=== PATIENT | female | born 1940 | race Caucasian/White ===

== ENCOUNTER 2018-07-30 02:27 | Outpatient (CLI) | payer MEDICARE, SELFPAY | END 2018-07-30 02:47 | PROVIDERS: PCP Family Medicine; Visit Provider Family Medicine | DX: E11.9 Type 2 diabetes mellitus without complications (principal) | CPT/HCPCS: 36415; 83036 ==

== ENCOUNTER 2019-01-31 00:59 | Outpatient (CLI) | payer MEDICARE, SELFPAY ==
[2019-01-31 10:24] LABS: Hemoglobin A1C 7.1 % (4.5-6.2)
[2019-01-31 10:57] LABS: CREATININE 0.83 mg/dL (0.55-1.02); Potassium 4.4 mmol/L (3.5-5.1)
== END 2019-01-31 01:19 ==
PROVIDERS: PCP Family Medicine; Visit Provider Family Medicine
DX: E11.9 Type 2 diabetes mellitus without complications (principal); I10 Essential (primary) hypertension; F17.200 Nicotine dependence, unspecified, uncomplicated
CPT/HCPCS: 36415; 82565; 83036; 84132

== ENCOUNTER 2019-05-04 03:49 | Outpatient (CLI) | payer MEDICARE, SELFPAY ==
--- NOTE | 2019-05-04 13:52 | DI.US_ITS ---
SYMPTOMS/DIAGNOSIS: ASSESS ENDOMETRIAL STRIPE PRIOR TO SURGERY, N81.4, CYSTOCELE WITH UTEROVAGINAL PROLAPSE PELVIC ULTRASOUND: Transabdominal and transvaginal exams were performed. There are no prior comparison exams. The bladder is unremarkable. There is no evidence of hydronephrosis or free fluid. The uterus measures 5.2 x 3.0 x 4.8 cm. Peripheral vascular calcifications are seen. A nabothian cyst is present. There is a thickened irregular endometrium measuring 8 mm in thickness. There are several cystic areas within the endometrium. The ovaries are normal in size. There is a question of a left-sided myometrial fibroid. IMPRESSION: Thickened irregular endometrium.
== END 2019-05-04 04:09 ==
PROVIDERS: PCP Family Medicine; Visit Provider Obstetrics & Gynecology Gynecology
DX: N81.4 Uterovaginal prolapse, unspecified (principal)
CPT/HCPCS: 76830; 76856

== ENCOUNTER 2019-05-14 08:40 | Emergency (ER) | payer MEDICARE, SELFPAY ==
[2019-05-14 08:47] VITALS: BP 148/56; PULSE 85; RESP 18; TEMP 36.6; O2SAT 97
[2019-05-14 08:52] LABS: Bilirubin Negative (Negative); Blood Negative (Negative); Clarity Cloudy (Clear); Glucose Negative (Negative); Ketones 15 mg/dL (Negative); Leukocyte Esterase Large (Negative); Nitrite Negative (Negative); Urobilinogen 0.2 EU/dL (Up TO 0.2)
--- NOTE | 2019-05-14 08:54 | ED.GENADUL_ITS ---
Discharge Plan Disposition Patient Disposition: HOME Condition: Improving Discharge Details Chief Complaint: FlankPain Clinical Impression: Problem with vaginal pessary Primary Care Provider: Miguel Lara ED Provider: Malcom Denson Home Meds and New Rx's Prescriptions: New cephalexin 500 mg tablet 500 mg PO TID 5 Days Qty: 15 RF: 0 Continued aspirin [Adult Low Dose Aspirin] 81 mg tablet,delayed release (DR/EC) 81 mg PO DAILY RF: 0 ICaps 3,205-7-665-75 swjr-gi-xd-unit tablet extended release 1 tab PO DAILY RF: 0 metformin 500 mg tablet 500 mg PO BID RF: 0 Prevnar 13 (PF) 0.5 mL syringe 0.5 ml IM ONCE Qty: 0.5 RF: 0 Premarin 30 GM cream 30 gm VG BID Qty: 1 RF: 0 triamcinolone acetonide 15 GM ointment 1 applic Topical BID PRNQty: 30 RF: 1 amitriptyline 25 mg tablet 25 mg PO HS Qty: 90 RF: 3 chlordiazepoxide HCl 5 mg capsule 5 mg PO HS Qty: 90 RF: 1 simvastatin 20 mg tablet 20 mg PO HS Qty: 90 RF: 4 propranolol 20 mg tablet 20 mg PO BID Qty: 180 RF: 3 lisinopril-hydrochlorothiazide 20-12.5 mg tablet 1 tab PO DAILY Qty: 90 RF: 4 lisinopril 20 mg tablet 20 mg PO DAILY Qty: 90 RF: 4 amlodipine 5 mg tablet 5 mg PO DAILY Qty: 90 RF: 3 Discharge Instructions Additional Instructions: Follow-up with [facility] for surgery as planned. Take antibiotics as planned. Return if you develop a fever, persistent flank pain, or any other acute concerns. Continue all regularly scheduled medications. No heavy lifting greater than 20 pounds. Medical Decision Making 70-year-old female who has pelvic floor dysfunction for which she has colpocleisis scheduled at [facility]. Presents with low back pain over days time feeling that her pessary has shifted. She is well-appearing and afebrile. I did discuss the case with Dr. Mueller. I subsequently removed the pessary at the bedside without difficulty. Patient has questional UTI/contamination. Given her pelvic floor dysfunction and pending surgery I will opt to treat with 5 days of Keflex. She is stable and improved. Appropriate for discharge to home. HPI General Mode of arrival: ambulatory . Date/Time Provider Initiated Documentation: 05/14/19 08:42 . Limitations to Documentation: no limitations . Information obtained by: patient . History of Present Illness 78 year old F presents to the emergency department with the chief complaint of 3-4D R flank pain, described as moderate, Quality is described as dull, and is localized to the back and right. Patient reports no radiation. Patient started experiencing this day(s) and it has been intermittent. No relieving factors improve symptom(s), No exacerbating factors reported . Patient notes other (+nausea); denies fever/chills. Patient did receive the following treatments prior to arrival, none Related Data Home Medications Medication Instructions Recorded Confirmed Premarin 30 gm VG BID #1 tube 05/26/17 05/14/19 triamcinolone acetonide 1 applic TOPICAL BID PRN #30 gm 02/03/18 05/14/19 aspirin 81 mg tablet,delayed 81 mg PO DAILY 06/01/18 05/14/19 release amitriptyline 25 mg tablet 25 mg PO HS #90 tab-cap 07/20/18 05/14/19 chlordiazepoxide HCl 5 mg capsule 5 mg PO HS #90 tab 01/07/19 05/14/19 amlodipine 5 mg tablet 5 mg PO DAILY #90 tab-cap 01/17/19 05/14/19 lisinopril 20 mg tablet 20 mg PO DAILY #90 tab-cap 01/17/19 05/14/19 lisinopril 20 1 tab PO DAILY #90 tab-cap 01/17/19 05/14/19 mg-hydrochlorothiazide 12.5 mg tablet propranolol 20 mg tablet 20 mg PO BID #180 tab-cap 01/17/19 05/14/19 simvastatin 20 mg tablet 20 mg PO HS #90 tab 01/17/19 05/14/19 metformin 500 mg tablet 500 mg PO BID 01/28/19 05/14/19 pneumoc 13-dominick conj-dip cr(PF) 0.5 0.5 ml IM ONCE #0.5 ml 01/28/19 05/14/19 mL IM syringe [id number]-tjozbdn-min 1 tab PO DAILY 01/28/19 05/14/19 3,300 unit-5 mg-200mg-75 unit tablet ER cephalexin 500 mg PO TID 5 Days #15 tab 05/14/19 Previous Rx's Medication Instructions Recorded amitriptyline 25 mg tablet 25 mg PO HS #90 tab-cap 07/20/18 chlordiazepoxide HCl 5 mg capsule 5 mg PO HS #90 tab 01/07/19 amlodipine 5 mg tablet 5 mg PO DAILY #90 tab-cap 01/17/19 lisinopril 20 mg tablet 20 mg PO DAILY #90 tab-cap 01/17/19 lisinopril 20 1 tab PO DAILY #90 tab-cap 01/17/19 mg-hydrochlorothiazide 12.5 mg tablet propranolol 20 mg tablet 20 mg PO BID #180 tab-cap 01/17/19 simvastatin 20 mg tablet 20 mg PO HS #90 tab 01/17/19 pneumoc 13-dominick conj-dip cr(PF) 0.5 0.5 ml IM ONCE #0.5 ml 01/28/19 mL IM syringe cephalexin 500 mg PO TID 5 Days #15 tab 05/14/19 Allergies Allergy/AdvReac Type Severity Reaction Status Date / Time No Known Allergies Allergy Unverified 05/14/19 08:52 General Stated Complaint: FlankPain MONO: 3 Review of Systems Review of Systems 6 systems reviewed and otherwise neg PFSH Medical History Pelvic organ prolapse quantification stage 4 cystocele (Acute) Tobacco use (Acute) Surgical History Biopsy of breast (~1999) Endometrial Biopsy Tonsillectomy and adenoidectomy Family History Father Personal history of malignant neoplasm FAMILY HISTORY Heart disease Social History Smoking/Tobacco Use Status: Current every day Tobacco Type: cigarettes Alcohol Intake: never Substance use type: does not use Household members: none Sexually active: No Tete/Yarsani: methodist Seatbelt use: always Do you feel safe at home: Yes Do you feel safe in your relationship?: Yes Female Reproductive History Menstrual Menopause type: natural History History 4 Para Hx # Term Pregnancies 3 Multiple births Hx # Pregnancies Ectopic pregnancies AB induced Hx Number of Living Children AB spontaneous Exam Narrative Exam Narrative: GEN: awake, alert, oriented 3. Pleasant, well groomed, interactive. HEAD: Normocephalic, atraumatic ENT: Mucous membranes moist, oropharynx unremarkable, External ear exam unremarkable EYES: PERRL, EOMI NECK: Full ROM, no YOLETTE, no menigismus CHEST/RESP: Nontender, clear to auscultation bilateral, no wheeze/rhonchi/rales CARDIOVASCULAR: RRR, no murmur, rub lilliana. 2+ Rad pulse bilateral ABDOMEN: Soft, nontender, no mass. +Bowel sounds. Pessary in place and removed with digital exam. EXT: Full ROM, no edema, no rash Neuro: Grossly normal neurologic exam, conversant, interactive. Psych: Speech fluent, thoughts congruent, affect normal Course Vital Signs Temperature 36.6 C 05/14/19 08:47 Pulse 85 05/14/19 08:47 Respiratory Rate 18 05/14/19 08:47 Blood Pressure 148/56 H 05/14/19 08:47 Pulse Oximetry 97 05/14/19 08:47 Temperature 36.6 C 05/14/19 08:47 Temperature Source Temporal Artery Scan 05/14/19 08:47 Pulse 85 05/14/19 08:47 Respiratory Rate 18 05/14/19 08:47 Respiratory Effort Non-Labored 05/14/19 08:51 Blood Pressure 148/56 H 05/14/19 08:47 Blood Pressure Position Sitting 05/14/19 08:47 Pulse Oximetry 97 05/14/19 08:47 Oxygen Delivery Method Room Air 05/14/19 08:47 Oxygen Flow Rate 0 05/14/19 08:47 Pain Level 8 05/14/19 08:47
[2019-05-14 08:59] LABS: Bacteria Many HPF (Negative); C & S Indicated? No/Sq. Contamination; Casts Negative LPF (Negative); Crystals Negative HPF (Negative); Epithelial Cells Many HPF (Negative); Mucus Trace (Negative); RBC Negative (0-2); WBC 20-50 HPF (0-5)
== END 2019-05-14 09:28 | disposition home or self-care (01) ==
LOC: ER 09:32
PROVIDERS: Emergency Provider Emergency Medicine; PCP Family Medicine
DX: N81.4 Uterovaginal prolapse, unspecified (principal); T83.84XA Pain due to genitourinary prosthetic devices, implants and grafts, initial encounter; M54.5 Low back pain; N39.0 Urinary tract infection, site not specified; Z45.89 Encounter for adjustment and management of other implanted devices
CPT/HCPCS: 99284; 81003; 81015; 99283

== ENCOUNTER 2019-05-19 16:39 | Emergency (ER) | payer MEDICARE, SELFPAY ==
[2019-05-19 16:43] VITALS: BP 139/54; PULSE 70; RESP 16; TEMP 36.4; O2SAT 98
--- NOTE | 2019-05-19 17:00 | ED.GENADUL_ITS ---
Discharge Plan Disposition Patient Disposition: HOME Condition: Stable Discharge Details Chief Complaint: RashLesion Clinical Impression: Shingles Primary Care Provider: Miguel Lara ED Provider: Ty Cantu [employer] Meds and New Rx's Prescriptions: New acyclovir 800 mg tablet 800 mg PO Q4H 7 Days Qty: 42 RF: 0 docusate sodium [Colace] 100 mg capsule 100 mg PO BID Qty: 30 RF: 0 Continued aspirin [Adult Low Dose Aspirin] 81 mg tablet,delayed release (DR/EC) 81 mg PO DAILY RF: 0 ICaps 3,[id number] cffw-wi-so-unit tablet extended release 1 tab PO DAILY RF: 0 metformin 500 mg tablet 500 mg PO BID RF: 0 Prevnar 13 (PF) 0.5 mL syringe 0.5 ml IM ONCE Qty: 0.5 RF: 0 Premarin 30 GM cream 30 gm VG BID Qty: 1 RF: 0 triamcinolone acetonide 15 GM ointment 1 applic Topical BID PRNQty: 30 RF: 1 amitriptyline 25 mg tablet 25 mg PO HS Qty: 90 RF: 3 chlordiazepoxide HCl 5 mg capsule 5 mg PO HS Qty: 90 RF: 1 simvastatin 20 mg tablet 20 mg PO HS Qty: 90 RF: 4 propranolol 20 mg tablet 20 mg PO BID Qty: 180 RF: 3 lisinopril-hydrochlorothiazide 20-12.5 mg tablet 1 tab PO DAILY Qty: 90 RF: 4 lisinopril 20 mg tablet 20 mg PO DAILY Qty: 90 RF: 4 amlodipine 5 mg tablet 5 mg PO DAILY Qty: 90 RF: 3 Discharge Instructions Instructions: Babatunde (ED) Additional Instructions: follow up with your primary care provider in 1-2 weeks if you have severe worsening pain, persistent vomit or feel more ill return to the emergency department Medical Decision Making 78 yo female with hx of prolapsed bladder, who had a pessary removed 5 days ago in the ED and started on abx for uti and scheduled to have surgery with [facility] for her prolpase next month, comes in with rash starting yesterday. She denies dyspnea, gi symptoms, fevers. She states burning of urination is improved, still has some difficulty urinating but feels it is due to the prolapse. No frequency. She has a a maculopapular rash over the t10 dermatome on the right torso without vesicles and doesn't cross midline. No warmth, suspect shingles, no findnigs to suggest cellulitis. will start her on acyclovir and advised f/u with pcp pt also now notes constipation despite miralax for 3 days. Has no adominal pain or distention to suggest sbo or other surgical pathology so do not feel labs or imaging indicated. Will start her on stool softener Differential Diagnosis shingles, urticaria HPI General Mode of arrival: ambulatory . Date/Time Provider Initiated Documentation: 05/19/19 16:45 . Limitations to Documentation: no limitations . Information obtained by: patient . History of Present Illness 78 year old F presents to the emergency department with the chief complaint of rash, described as moderate, Quality is described as aching, and it has been constant. No relieving factors improve symptom(s), No exacerbating factors reported . Patient did receive the following treatments prior to arrival, none Related Data Home Medications Medication Instructions Recorded Confirmed Premarin 30 gm VG BID #1 tube 05/26/17 05/19/19 triamcinolone acetonide 1 applic TOPICAL BID PRN #30 gm 02/03/18 05/19/19 aspirin 81 mg tablet,delayed 81 mg PO DAILY 06/01/18 05/19/19 release amitriptyline 25 mg tablet 25 mg PO HS #90 tab-cap 07/20/18 05/19/19 chlordiazepoxide HCl 5 mg capsule 5 mg PO HS #90 tab 01/07/19 05/19/19 amlodipine 5 mg tablet 5 mg PO DAILY #90 tab-cap 01/17/19 05/19/19 lisinopril 20 mg tablet 20 mg PO DAILY #90 tab-cap 01/17/19 05/19/19 lisinopril 20 1 tab PO DAILY #90 tab-cap 01/17/19 05/19/19 mg-hydrochlorothiazide 12.5 mg tablet propranolol 20 mg tablet 20 mg PO BID #180 tab-cap 01/17/19 05/19/19 simvastatin 20 mg tablet 20 mg PO HS #90 tab 01/17/19 05/19/19 metformin 500 mg tablet 500 mg PO BID 01/28/19 05/14/19 pneumoc 13-dominick conj-dip cr(PF) 0.5 0.5 ml IM ONCE #0.5 ml 01/28/19 05/19/19 mL IM syringe [id number]-[id number]-nviafva-min 1 tab PO DAILY 01/28/19 05/19/19 3,300 unit-5 mg-200mg-75 unit tablet ER acyclovir 800 mg PO Q4H 7 Days #42 tab 05/19/19 docusate sodium [Colace] 100 mg PO BID #30 cap 05/19/19 Previous Rx's Medication Instructions Recorded amitriptyline 25 mg tablet 25 mg PO HS #90 tab-cap 07/20/18 chlordiazepoxide HCl 5 mg capsule 5 mg PO HS #90 tab 01/07/19 amlodipine 5 mg tablet 5 mg PO DAILY #90 tab-cap 01/17/19 lisinopril 20 mg tablet 20 mg PO DAILY #90 tab-cap 01/17/19 lisinopril 20 1 tab PO DAILY #90 tab-cap 01/17/19 mg-hydrochlorothiazide 12.5 mg tablet propranolol 20 mg tablet 20 mg PO BID #180 tab-cap 01/17/19 simvastatin 20 mg tablet 20 mg PO HS #90 tab 01/17/19 pneumoc 13-dominick conj-dip cr(PF) 0.5 0.5 ml IM ONCE #0.5 ml 01/28/19 mL IM syringe acyclovir 800 mg PO Q4H 7 Days #42 tab 05/19/19 docusate sodium [Colace] 100 mg PO BID #30 cap 05/19/19 Allergies Allergy/AdvReac Type Severity Reaction Status Date / Time No Known Allergies Allergy Unverified 05/19/19 16:48 General Stated Complaint: RashLesion MONO: 4 Review of Systems Review of Systems All systems reviewed & are unremarkable except as noted in HPI and below Constitutional Denies chills, Denies fever(s) and Denies weakness Cardiovascular Denies chest pain and Denies dyspnea Respiratory Denies cough and Denies dyspnea Gastrointestinal Denies abdominal pain, Denies nausea and Denies vomiting Neurologic Denies weakness PFSH Social History Smoking/Tobacco Use Status: Current every day Tobacco Type: cigarettes Alcohol Intake: never Substance use type: does not use Household members: none Sexually active: No Tete/Mu-Ism: pentecostal Seatbelt use: always Do you feel safe at home: Yes Do you feel safe in your relationship?: Yes Female Reproductive History Menstrual Menopause type: natural History History 4 Para Hx # Term Pregnancies 3 Multiple births Hx # Pregnancies Ectopic pregnancies AB induced Hx Number of Living Children AB spontaneous Exam Const General: no acute distress Orientation: alert HENMT Head: normal to inspection Ears: external ears normal General nose exam: external nose normal Mouth: moist mucous membranes Eyes General: appearance normal, both eyes and all related structures Neck Neck: normal visual inspection Resp Effort & Inspection: normal respiratory effort and able to speak in complete sentences Cardio Rate: regular rate Skin General skin exam: elasticity normal Neuro General: alert and oriented x3 Extrem General: normal to inspection Psych Mental Status: mental status grossly normal Course Vital Signs Temperature 36.4 C L 05/19/19 16:43 Pulse 70 05/19/19 16:43 Respiratory Rate 16 05/19/19 16:43 Blood Pressure 139/54 L 05/19/19 16:43 Pulse Oximetry 98 05/19/19 16:43 Temperature 36.4 C L 05/19/19 16:43 Temperature Source Skin 05/19/19 16:43 Pulse 70 05/19/19 16:43 Respiratory Rate 16 05/19/19 16:43 Respiratory Effort Non-Labored 05/19/19 16:43 Blood Pressure 139/54 L 05/19/19 16:43 Blood Pressure Position Sitting 05/19/19 16:43 Pulse Oximetry 98 05/19/19 16:43 Oxygen Delivery Method Room Air 05/19/19 16:43 Oxygen Flow Rate 0 05/19/19 16:43 Pain Level 5 05/19/19 16:43
[2019-05-19 17:02] LABS: Bilirubin Negative (Negative); Blood Negative (Negative); Clarity Clear (Clear); Glucose Negative (Negative); Ketones Negative (Negative); Leukocyte Esterase Negative (Negative); Nitrite Negative (Negative); Urobilinogen 0.2 EU/dL (Up TO 0.2)
== END 2019-05-19 17:21 | disposition home or self-care (01) ==
PROVIDERS: Emergency Provider Emergency Medicine; PCP Family Medicine
DX: B02.9 Zoster without complications (principal); K59.00 Constipation, unspecified
CPT/HCPCS: 99283; 81003; 87086

== ENCOUNTER 2020-03-16 01:49 | Outpatient (CLI) | payer MEDICARE, SELFPAY ==
[2020-03-16 14:51] LABS: Hemoglobin A1C 6.6 % (3.8-5.6)
[2020-03-16 16:06] LABS: Calculated LDL 79 mg/dL (<100); Cholesterol 158 mg/dL (<200); HDL Cholesterol 36 mg/dL (40-60); Triglyceride 215 mg/dL (<150)
== END 2020-03-16 02:09 ==
PROVIDERS: PCP Family Medicine; Visit Provider Family Medicine
DX: I10 Essential (primary) hypertension (principal); E11.9 Type 2 diabetes mellitus without complications
CPT/HCPCS: 36415; 80061; 82043; 82570; 83036

== ENCOUNTER 2020-03-22 11:07 | Outpatient (REF) | payer MEDICARE, SELFPAY ==
[2020-03-22 12:15] LABS: COMMENT (LAB VIEW ONLY) 117.55 mg/dL; Microalb ug/mg Crea 9.4 ug/mg Cr
== END 2020-03-22 11:27 ==
LOC: LBN 11:07
PROVIDERS: PCP Family Medicine; Visit Provider Family Medicine
DX: E11.9 Type 2 diabetes mellitus without complications (principal)
CPT/HCPCS: 82043; 82570

== ENCOUNTER 2021-12-04 19:08 | Outpatient (REF) | payer MEDICARE, SELFPAY ==
[2021-12-04 20:17] LABS: Hemoglobin A1C 6.9 % (<5.7)
[2021-12-04 20:25] LABS: CREATININE 0.8 mg/dL (0.55-1.02); Calculated LDL 67 mg/dL (<100); Cholesterol 151 mg/dL (<200); HDL Cholesterol 39 mg/dL (40-60); Potassium 4.7 mmol/L (3.5-5.1); Triglyceride 227 mg/dL (<150)
== END 2021-12-04 19:09 | disposition home or self-care (01) ==
LOC: LBN 19:08
PROVIDERS: PCP Family Medicine; Visit Provider Family Medicine
DX: R73.9 Hyperglycemia, unspecified (principal); I10 Essential (primary) hypertension; E78.5 Hyperlipidemia, unspecified
CPT/HCPCS: 80061; 82565; 83036; 84132

== ENCOUNTER 2021-12-23 06:53 | Day surgery (SDC) | payer MEDICARE, SELFPAY ==
[2021-12-23] MEDS: Tropicam./Phenyleph. (1/2.5%) 5 ML BTL OD ×3 (07:24→07:35)
[2021-12-23 07:25] VITALS: BP 151/64; PULSE 74; RESP 16; TEMP 36.3; O2SAT 100
--- NOTE | 2021-12-23 07:42 | W.ANESPRE ---
General Info Date of Service Date Performed: 12/23/21 Height: 4 ft 7 in Weight: 50.349 kg Body Mass Index (BMI): 25.7 Surgical Procedure: Operation Date: 12/23/21 08:25 Proposed Procedure Side Surgeon p Cataract Extraction with IOL Implant Right Aaron Narvaez MD Meds Allergies and Home Medications Allergies Allergy/AdvReac Type Severity Reaction Status Date / Time No Known Allergies Allergy Unverified 12/23/21 07:18 Home Medication Medication Instructions Recorded aspirin 81 mg tablet,delayed 81 mg PO DAILY 06/01/18 release (Adult Low Dose Aspirin) [id number]-[id number]-tznret-usezsfm-min 1 tab PO DAILY 01/28/19 3,300 unit-5 mg-200mg-75 unit tablet ER (ICaps) sennosides 8.6 mg-docusate sodium 2 tab-cap PO DAILY PRN #180 tab 03/06/20 50 mg tablet (Senna with Docusate Sodium) amitriptyline 25 mg tablet 25 mg PO HS #90 tab-cap 11/06/21 amlodipine 5 mg tablet 5 mg PO DAILY #90 tab-cap 11/06/21 lisinopril 20 mg tablet 20 mg PO DAILY #90 tab-cap 11/06/21 lisinopril 20 1 tab PO DAILY #90 tab-cap 11/06/21 mg-hydrochlorothiazide 12.5 mg tablet metformin 500 mg tablet 500 mg PO BID #180 tab 11/06/21 propranolol 20 mg tablet 20 mg PO BID #180 tab-cap 11/06/21 simvastatin 20 mg tablet 20 mg PO HS #90 tab 11/06/21 chlordiazepoxide HCl 5 mg capsule 5 mg PO HS #90 tab 11/13/21 Current Visit Medications: Current Medications Generic Name Dose Route Start Last Admin Trade Name Freq PRN Reason Stop Dose Admin Acetaminophen 1,000 mg 12/23/21 06:00 Acetaminophen 500 Mg Tab PO Q4H PRN PRN Miscellaneous Medication 0 ml 12/23/21 06:00 Prednisolone 1%, Moxifloxacin 0.5%, Nepafenac 0.1% 5ml Btl OD DIRECTED MATTHEW Miscellaneous Medication 0 ml 12/23/21 06:00 12/23/21 07:35 Tropicam./Phenyleph. 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 For 2018 [facility] urogynecology consult: Patient recommended to have a colpocleisis. Pessary maintenance (08/05/17) Long-standing use of 64 mm longstem Gelhorn. Change to 64 mm donut pessary 06/21/18. Not well tolerated. Pt will stop all pessary use and be eval for surgical Rx at [facility]. Tobacco use In the pre-contemplative stage of cessation. Surgical History Surgical History Biopsy of breast (~2000) Endometrial Biopsy neg History of bilateral salpingo-oophorectomy 07/20/19 History of total vaginal hysterectomy (TVH) Patient also had a Vaginectomy 07/20/19 Tonsillectomy and adenoidectomy Tobacco Smoking/Tobacco Use Status: Current every day Tobacco Type: cigarettes Smoking packs per day: 1 Alcohol Alcohol Intake: never Substance Use Substance use type: does not use Prental History History 4 Para Hx # Term Pregnancies 3 Multiple births Hx # Pregnancies Ectopic pregnancies AB induced Hx Number of Living Children AB spontaneous Vital Signs and Lab Results Vital Signs Most Recent Vital Signs in EMR: Most Recent Vital Signs Temp Pulse Resp BP Pulse Ox 36.3 C L 74 16 151/64 H 100 12/23/21 07:25 12/23/21 07:25 12/23/21 07:25 12/23/21 07:25 12/23/21 07:25 Point of Care Results Point of Care Results: Finger Stick Blood Glucose 154 12/23/21 07:13 Lab Results Blood Type / Crossmatch: No Data to Display Complete Blood Count: No Data to Display Complete Metabolic Panel: Potassium Level 4.7 mmol/L (3.5-5.1) 12/04/21 12:25 12/04/21 Creatinine 0.8 mg/dL (0.55-1.02) 12/04/21 12:25 12/04/21 Estimated GFR/1.73 m2 >= 60.00 (mL/min/1.73m2) 12/04/21 12:25 12/04/21 Hemoglobin A1c 6.9 % (<5.7) H 12/04/21 12:25 12/04/21 Liver Function Panel: No Data to Display Coagulation Panel: No Data to Display Cardiac Panel: No Data to Display Arterial Blood Gas: No Data to Display Venous Blood Gas: No Data to Display Pancreas Panel: No Data to Display Thyroid Panel: No Data to Display Infectious Disease: No Data to Display Blood Cultures: No Data to Display Toxicology Panel: No Data to Display Anesthesia Assessment and Plan Anesthesia History Personal History: No History of Anesthesia Complications Family History: No Family History of Anesthesia Complications Exercise Tolerance Exercise Tolerance: Metabolic Equivalents>4 Cardiac & Pulmonary Exam Cardiac Exam: Normal S1/S2 Heart Sounds Pulmonary Exam: Clear Bilateral Breath Sounds Implantable Cardiac Device Does patient have a Pacemaker or an ICD?: No Airway Exam Known Difficult Airway: No Mallampati Class: 2 Mouth Opening: Normal (> 3cm) Thyromental Distance: Greater than 3 cm Neck Range of Motion: Full ROM Neck Circumference: Normal Teeth Condition: Edentulous ASA Classification ASA Score: ASA 2 Emergency Case?: No NPO Status NPO Status: NPO Clears >2 hours, Solids >8 hours Anesthesia Plan Resuscitation Status: Full Code Anesthesia Technique: MAC Anesthesia Airway Planned: Natural Airway Monitors Used: Standard Monitors
[2021-12-23 07:44] VITALS: BMI 25.7
[2021-12-23] MEDS: Tetracaine 0.5% 4 ML BTL OD (08:14)
[2021-12-23] MEDS: Balanced Salt Soln.-PLUS 500 ML BAG (08:32)
[2021-12-23] MEDS: Duovisc Viscoelastic System EACH 1 EACH (08:33)
[2021-12-23] MEDS: Lidocaine 2% Jelly 6 ML SYR (08:34)
[2021-12-23] MEDS: Povidone-Iodine Ophth 30 ML BTL (08:35)
[2021-12-23 08:45] VITALS: BP 142/56; PULSE 73; RESP 16; TEMP 36; O2SAT 96
--- NOTE | 2021-12-23 08:46 | W.PM.DSUDISC ---
Discharge Plan Disposition Patient Disposition: HOME Condition: Good Discharge Details Attending Provider: Aaron Narvaez Primary Care Provider: Miguel Lara Home Meds and New Rx's Prescriptions: No Action aspirin [Adult Low Dose Aspirin] 81 mg tablet,delayed release (DR/EC) 81 mg PO DAILY 0RF ICaps 3,[id number] kvup-xw-rh-unit tablet extended release 1 tab PO DAILY 0RF sennosides-docusate sodium [Senna with Docusate Sodium] 8.6-50 mg tablet 2 tab-cap PO DAILY PRN Qty: 180 3RF amitriptyline 25 mg tablet 25 mg PO HS Qty: 90 3RF amlodipine 5 mg tablet 5 mg PO DAILY Qty: 90 3RF lisinopril 20 mg tablet 20 mg PO DAILY Qty: 90 4RF lisinopril-hydrochlorothiazide 20-12.5 mg tablet 1 tab PO DAILY Qty: 90 4RF metformin 500 mg tablet 500 mg PO BID Qty: 180 3RF propranolol 20 mg tablet 20 mg PO BID Qty: 180 3RF simvastatin 20 mg tablet 20 mg PO HS Qty: 90 4RF chlordiazepoxide HCl 5 mg capsule 5 mg PO HS Qty: 90 1RF Discharge Instructions Stand Alone Forms: Post-op Topical CataractRubio (DSU) Discharge Orders Discharge Orders: Discharge Order (Routine); Ordered 12/23/21 Ordered By: Aaron Narvaez DS: Diagnosis Discharge Diagnosis (1) Posterior subcapsular age-related cataract, right eye: Status: Resolved (2) Cortical cataract of right eye: Status: Resolved (3) Nuclear sclerotic cataract of right eye: Status: Resolved
--- NOTE | 2021-12-23 08:47 | ROE_ITS ---
Date of service: 12/23/21 Time of Service: 08:47 Operative Note Operative Note DATE OF PROCEDURE: 12/23/21 PRE-OP DIAGNOSIS: Nuclear/cortical/posterior subcapsular cataract, right eye POST-OP DIAGNOSIS: same PROCEDURE: Cataract extraction using phacoemulsification with intraocular lens implant, right eye SURGEON: Aaron Narvaez ANESTHESIA TYPE: Local By Surgeon and MAC Refer to Anesthesia Record ESTIMATED BLOOD LOSS: 0 PATHOLOGY: none sent COMPLICATIONS: None Patient was transported to: same day Patient's condition: stable Implants: Demetris & Demetris/LINA Tecnis [id number] Indications: Progressive visual loss due to cataract, right eye Procedure Description: CATARACT SURGERY OPERATIVE REPORT PREOPERATIVE DIAGNOSIS: 1. Nuclear/cortical/posterior subcapsular cataract, right eye POSTOPERATIVE DIAGNOSIS: Same OPERATION: 1. Cataract extraction using phacoemulsification with posterior chamber intraocular lens implant, right eye. IOL: IOL Paper Cap Machine Operator/Model: Demetris & Demetris / LINA Tecnis [id number] IOL Power: + 24.0 diopters IOL Serial Number: [id number] Optic Diameter: 6.0mm Haptic/Overall Diameter: 13.0mm PHACO INFO: Arben bencheeurion Vision System with OZil and Active Fluidics Cumulative Dispersed Energy (CDE): 14.86 seconds SURGEON: Aaron Narvaez MD, CAROLYN ANESTHESIA: Monitored Anesthesia Care (MAC), with local sub-tenon's anesthetic infiltration COMPLICATIONS: None SPECIMENS: None INDICATIONS FOR PROCEDURE: The patient is an 81-year-old lady with history of diminished visual acuity in her right eye secondary to the development of nuclear/cortical/posterior subcapsular cataract. She is significantly symptomatic that she desires cataract surgery and attempt to improve and maximize her vision. The option of cataract surgery was offered to the patient and she wished to proceed. PROCEDURE: The correct surgical eye was identified and marked as the right eye and the pupil was dilated in the preoperative area using mydriatics and cycloplegics. The dilated pupil size was 7.0 mm. She elected to proceed without oral sedation.. The patient was brought to the operating room where cardiopulmonary monitoring was instituted and surgical time-out was performed, confirming the correct operative eye and IOL power. Topical anesthesia was administered and ophthalmic povidone-iodine 5% was instilled into the conjunctival fornices. Lidocaine gel was applied to the cornea and the sandi-ocular area was prepped with Betadine 10% solution and draped in the usual sterile fashion for intraocular surgery, including an aperture drape. A Tegaderm transparent film dressing was cut in half and used to cover the lashes and lid margins. Care was taken to sequester the lashes and lid margins under the Tegaderm dressing. A lid speculum was placed between the lids of the operative eye and the Arben LuxOR Revalia operating microscope was maneuvered into position. Jamie scissors were then used to make a conjunctival buttonhole approximately 6mm posterior to the limbus in the inferonasal quadrant. Blunt dissection was carried out to expose bare sclera, and a blunt-tipped sub-tenon?s anesthesia cannula was introduced and passed posteriorly along the globe where non- preserved plain lidocaine was injected into posterior sub-Tenon?s space. A sideport knife was used to make a paracentesis port inferotemporally. Intraocular phenylephrine/lidocaine was injected into the anterior chamber. The anterior chamber was filled with viscoelastic. A 2.4mm keratome knife was used to create a half-thickness groove at the limbus and then to construct a three- plane near-clear corneal tunnel extending 2.0mm into clear cornea superiortemporally. A flap was raised on the anterior capsule and capsulorhexis forceps were used to complete a continuous curvilinear capsulorhexis of 5.5 mm. Balanced salt solution was then used to perform cortical cleaving hydrodissection and nuclear hydrodelineation until the lens could be freely rotated within the capsular bag. The lens nucleus was then disassembled and removed within the capsular bag and iris plane using phacoemulsification. Residual cortical material was removed using the I/A handpiece. The posterior capsule was carefully polished to remove as much residual lens epithelial cells as safely possible. The capsular bag was then inflated and the anterior chamber deepened with viscoelastic. The lens implant described above was inserted into the capsular bag using the LINA [place] Injector. A Kuglen hook was used to dial the IOL into position. Residual viscoelastic was then removed first from posterior to the IOL, then from the anterior chamber using the I/A handpiece. The lens implant was noted to center nicely within the capsular bag. The incisions were stromally hydrated, and the anterior chamber was reformed using BSS. Then 0.5cc of moxifloxacin 1.0mg/ml were injected into the capsular bag and anterior chamber. The incisions were checked with a Weck spear and found to be secure. Several drops of ophthalmic povidone-iodine 5% were then applied to the eye followed by two drops of Imprimis combination prednisolone/moxifloxacin/nepafenac solution. The drapes were removed and a clear plastic protective eye shield was placed over the eye. The patient was then returned to Same Day Surgery in stable condition.
--- NOTE | 2021-12-23 09:01 | W.ANESPOSTOP ---
Postoperative Evaluation Date, Time and Location Date Performed: 12/23/21 Time Performed: 08:47 Patient Location: Day Surgery Unit Vital Signs Most Recent Imported Vital Signs: Most Recent Vital Signs Temp Pulse Resp BP Pulse Ox 36.0 C L 73 16 142/56 H 96 12/23/21 08:45 12/23/21 08:45 12/23/21 08:45 12/23/21 08:45 12/23/21 08:45 Pain Score Most Recent Pain Score: Most Recent Pain Score Pain Level 0 12/23/21 08:45 Assessment Mental Status: Awake (Alert & Oriented to Patient Baseline) Airway and Respiratory Function: Patent airway with normal (patient baseline) respiratory exam Cardiovascular Function: Hemodynamically Stable Hydration Status: Adequately Hydrated Nausea & Vomiting: No Nausea or Vomiting Pain: Pt. Denies Any Pain Peripheral Nerve Block: Patient did not receive a nerve block
== END 2021-12-23 09:29 | disposition home or self-care (01) ==
PROVIDERS: PCP Family Medicine; Visit Provider Ophthalmology
PROC: (CPT 66984; principal; 2021-12-23 08:15)
DX: H25.041 Posterior subcapsular polar age-related cataract, right eye (principal); E11.9 Type 2 diabetes mellitus without complications; I10 Essential (primary) hypertension; E78.5 Hyperlipidemia, unspecified
CPT/HCPCS: 66984; V2632

== ENCOUNTER 2022-01-06 06:49 | Day surgery (SDC) | payer MEDICARE, SELFPAY ==
--- NOTE | 2022-01-06 06:47 | W.PREOPHP ---
Assessment and Plan Assessment and plan (1) Cortical cataract of left eye: Status: Acute Assessment and plan: Assessment: Visually significant cataract of the left eye. Plan: Cataract extraction with lens implantation of the left eye. (2) Nuclear sclerotic cataract of left eye: Status: Acute Assessment and plan: Assessment: Visually significant cataract of the left eye. Plan: Cataract extraction with lens implantation of the left eye. (3) Posterior subcapsular age-related cataract of left eye: Status: Acute Assessment and plan: Assessment: Visually significant cataract of the left eye. Plan: Cataract extraction with lens implantation of the left eye. History of Present Illness History of Present Illness Chief Complaint: Progressive decreased vision, left eye Narrative: The patient is an 80-year-old lady with history of progressive decreased vision in both eyes, secondary to the presence of significant bilateral nuclear/cortical/posterior subcapsular cataract. She was significantly symptomatic that she desired cataract surgery attempt to improve and maximize her vision. She underwent cataract surgery in the right eye on 12/23/2021. Postoperatively she has regained uncorrected vision of 20/70, pinhole into 20/40 in the right eye. She now presents for cataract surgery in the left eye. Review of Systems All systems reviewed & are unremarkable except as noted in HPI and below PFSH All Active Problems Posterior subcapsular age-related cataract of left eye (Acute) Nuclear sclerotic cataract of left eye (Acute) Cortical cataract of left eye (Acute) Smoker (Acute) Neurodermatitis (Acute) eczema Hyperlipidemia (Acute) Essential hypertension (Acute 08/25/13) Diabetes mellitus (Chronic 03/16/12) Arthritis (Acute) Anxiety (Acute) H/O 30 yr. benzodiazepine use Medical History Cystocele with uterine prolapse (06/30/11) Treated with LeFort colpocleisis, posterior [place] [facility] [place] Pelvic organ prolapse quantification stage 4 cystocele Long-standing Gellhorn use, 06/2018 changed with donut pessary use of insertion and removal. For [place] [facility] [place] consult: Patient recommended to have a colpocleisis. Pessary maintenance (08/05/17) Long-standing use of 64 mm longstem Gelhorn. Change to 64 mm donut pessary 06/21/18. Not well tolerated. Pt will stop all pessary use and be eval for surgical Rx at [facility] [place]. Tobacco use In the pre-contemplative stage of cessation. Surgical History Biopsy of breast (~1999) Endometrial Biopsy neg History of bilateral salpingo-oophorectomy 07/20/19 History of total vaginal hysterectomy (TVH) Patient also had a Vaginectomy 07/20/19 Tonsillectomy and adenoidectomy Family History Father Personal history of malignant neoplasm COLON FAMILY HISTORY Heart disease Social History Smoking/Tobacco Use Status: Current every day Tobacco Type: cigarettes Smoking packs per day: 1 Smoking cigarettes per day: 20.0 Smoking risk assessment performed?: Yes Alcohol Intake: never Substance use type: does not use Household members: none Sexually active: No Tete/Uatsdin: tenriism Seatbelt use: always Do you feel safe at home: Yes Do you feel safe in your relationship?: Yes Additional Social history: lives alone-will have somebody to care for her post-op Female Reproductive History Menstrual Menopause type: natural History History 4 Para Hx # Term Pregnancies 3 Multiple births Hx # Pregnancies Ectopic pregnancies AB induced Hx Number of Living Children AB spontaneous Meds Allergies and Home Medications Allergies Allergy/AdvReac Type Severity Reaction Status Date / Time No Known Allergies Allergy Verified 01/06/22 07:09 Home Medications Medication Instructions Recorded Confirmed Type aspirin 81 mg tablet,delayed 81 mg PO DAILY 06/01/18 01/06/22 History release (Adult Low Dose Aspirin) [id number]-[id number]-min 1 tab PO DAILY 01/28/19 01/06/22 History 3,300 unit-5 mg-200mg-75 unit tablet ER (ICaps) sennosides 8.6 mg-docusate sodium 2 tab-cap PO DAILY PRN #180 tab 03/06/20 01/02/22 Rx 50 mg tablet (Senna with Docusate Sodium) amitriptyline 25 mg tablet 25 mg PO HS #90 tab-cap 02/16/22 04/18/22 Rx amlodipine 5 mg tablet 5 mg PO DAILY #90 tab-cap 11/06/21 01/06/22 Rx lisinopril 20 mg tablet 20 mg PO DAILY #90 tab-cap 11/06/21 01/06/22 Rx lisinopril 20 1 tab PO DAILY #90 tab-cap 11/06/21 01/06/22 Rx mg-hydrochlorothiazide 12.5 mg tablet metformin 500 mg tablet 500 mg PO BID #180 tab 11/06/21 01/06/22 Rx propranolol 20 mg tablet 20 mg PO BID #180 tab-cap 11/06/21 01/06/22 Rx simvastatin 20 mg tablet 20 mg PO HS #90 tab 11/06/21 01/06/22 Rx chlordiazepoxide HCl 5 mg capsule 5 mg PO HS #90 tab 11/13/21 01/06/22 Rx Exam Eyes Other: Uncorrected visual acuity measures 20/70 in the right eye, pinhole in two 20/40. Corrected visual acuity in the left eye is 20/60. Intraocular pressure is 12 OD 11 OS. Extraocular Casandra is normal. Slit-lamp examination reveals a well-positioned PCIOL in the right eye with clear posterior capsule. The left eye shows mild cortical and posterior subcapsular cataract. There is a dense nuclear cataract in the left eye. Dilated funduscopic examination reveals disc cupping of 0.25 OU with normal vessels, macula, peripheral retina and vitreous. Resp Auscultation: clear to auscultation bilaterally Cardio Rate: regular rate Rhythm: regular rhythm
[2022-01-06 07:13] VITALS: BP 137/57; PULSE 70; RESP 16; TEMP 36.4; O2SAT 99
[2022-01-06] MEDS: Tropicam./Phenyleph. (1/2.5%) 5 ML BTL OS ×3 (07:20→07:30)
--- NOTE | 2022-01-06 07:33 | ANES.PREOP_ITS ---
General Info Date of Service Date Performed: 01/06/22 Height: 4 ft 7 in Weight: 51.3 kg Body Mass Index (BMI): 26.2 Surgical Procedure: Operation Date: 01/06/22 08:25 Proposed Procedure Side Surgeon p Cataract Extraction with IOL Implant Left Aaron Narvaez MD Meds Allergies and Home Medications Allergies Allergy/AdvReac Type Severity Reaction Status Date / Time No Known Allergies Allergy Verified 01/06/22 07:09 Home Medication Medication Instructions Recorded aspirin 81 mg tablet,delayed 81 mg PO DAILY 06/01/18 release (Adult Low Dose Aspirin) [id number]-[id number]-T-G-[id number]-qwyqcpl-min 1 tab PO DAILY 01/28/19 3,300 unit-5 mg-200mg-75 unit tablet ER (ICaps) sennosides 8.6 mg-docusate sodium 2 tab-cap PO DAILY PRN #180 tab 03/06/20 50 mg tablet (Senna with Docusate Sodium) amitriptyline 25 mg tablet 25 mg PO HS #90 tab-cap 11/06/21 amlodipine 5 mg tablet 5 mg PO DAILY #90 tab-cap 11/06/21 lisinopril 20 mg tablet 20 mg PO DAILY #90 tab-cap 11/06/21 lisinopril 20 1 tab PO DAILY #90 tab-cap 11/06/21 mg-hydrochlorothiazide 12.5 mg tablet metformin 500 mg tablet 500 mg PO BID #180 tab 11/06/21 propranolol 20 mg tablet 20 mg PO BID #180 tab-cap 11/06/21 simvastatin 20 mg tablet 20 mg PO HS #90 tab 11/06/21 chlordiazepoxide HCl 5 mg capsule 5 mg PO HS #90 tab 11/13/21 Current Visit Medications: Current Medications Generic Name Dose Route Start Last Admin Trade Name Freq PRN Reason Stop Dose Admin Acetaminophen 1,000 mg 01/06/22 06:00 Acetaminophen 500 Mg Tab PO Q4H PRN PRN Miscellaneous Medication 0 ml 01/06/22 06:00 Prednisolone 1%, Moxifloxacin 0.5%, Nepafenac 0.1% 5ml Btl OS DIRECTED MATTHEW Miscellaneous Medication 0 ml 01/06/22 06:00 01/06/22 07:30 Tropicam./Phenyleph. (1/2.5%) 5 Ml Btl OS 1 drp DIRECTED MATTHEW Administration Tetracaine HCl 0 ml 01/06/22 06:00 Tetracaine 0.5% 4 Ml Btl OS DIRECTED MATTHEW PFSH Active Problems Active Problems: Problem Status Onset Code Posterior subcapsular age-related cataract of left eye H25.042 Nuclear sclerotic cataract of left eye H25.12 Cortical cataract of left eye H26.9 Posterior subcapsular age-related cataract, right eye H25.041 Cortical cataract of right eye H26.9 Nuclear sclerotic cataract of right eye H25.11 Smoker F17.200 Neurodermatitis L28.0 Hyperlipidemia E78.5 Essential hypertension 08/25/13 I10 Diabetes mellitus 03/16/12 E11.9 Arthritis M19.90 Anxiety F41.9 Medical History Medical History Cystocele with uterine prolapse (06/30/11) Treated with LeFort colpocleisis, posterior repair at [facility] [place] Pelvic organ prolapse quantification stage 4 cystocele Long-standing Gellhorn use, 06/2018 changed with donut pessary use of ins ertion and removal. For [address] [facility] [place] urogynecology consult: Patient recommended to have a colpocleisis. Pessary maintenance (08/05/17) Long-standing use of 64 mm longstem Gelhorn. Change to 64 mm donut pessary 06/21/18. Not well tolerated. Pt will stop all pessary use and be eval for surgical Rx at [facility] [place]. Tobacco use In the pre-contemplative stage of cessation. Surgical History Surgical History Biopsy of breast (~2000) Endometrial Biopsy neg History of bilateral salpingo-oophorectomy 07/20/19 History of total vaginal hysterectomy (TVH) Patient also had a Vaginectomy 07/20/19 Tonsillectomy and adenoidectomy Tobacco Smoking/Tobacco Use Status: Current every day Tobacco Type: cigarettes Smoking packs per day: 1 Alcohol Alcohol Intake: never Substance Use Substance use type: does not use Prental History History 4 Para Hx # Term Pregnancies 3 Multiple births Hx # Pregnancies Ectopic pregnancies AB induced Hx Number of Living Children AB spontaneous Vital Signs and Lab Results Vital Signs Most Recent Vital Signs in EMR: Most Recent Vital Signs Temp Pulse Resp BP Pulse Ox 36.4 C L 70 16 137/57 L 99 01/06/22 07:13 01/06/22 07:13 01/06/22 07:13 01/06/22 07:13 01/06/22 07:13 Lab Results Blood Type / Crossmatch: No Data to Display Complete Blood Count: No Data to Display Complete Metabolic Panel: No Data to Display Liver Function Panel: No Data to Display Coagulation Panel: No Data to Display Cardiac Panel: No Data to Display Arterial Blood Gas: No Data to Display Venous Blood Gas: No Data to Display Pancreas Panel: No Data to Display Thyroid Panel: No Data to Display Infectious Disease: No Data to Display Blood Cultures: No Data to Display Toxicology Panel: No Data to Display Anesthesia Assessment and Plan Anesthesia History Personal History: No History of Anesthesia Complications Family History: No Family History of Anesthesia Complications Exercise Tolerance Exercise Tolerance: Metabolic Equivalents>4 Pertinent Negatives Pertinent Negatives: No Symptoms of GERD, No Major Cardiovascular Symptoms or Complaints, No Major Pulmonary Symptoms or Complaints and No History of CVA/TIA Cardiac & Pulmonary Exam Cardiac Exam: Normal S1/S2 Heart Sounds Pulmonary Exam: Clear Bilateral Breath Sounds Implantable Cardiac Device Does patient have a Pacemaker or an ICD?: No Airway Exam Known Difficult Airway: No Mallampati Class: 2 Mouth Opening: Normal (> 3cm) Thyromental Distance: Greater than 3 cm Neck Range of Motion: Full ROM Neck Circumference: Normal Teeth Condition: Edentulous ASA Classification ASA Score: ASA 2 Emergency Case?: No NPO Status NPO Status: NPO Clears >2 hours, Solids >8 hours Anesthesia Plan Resuscitation Status: Full Code Anesthesia Technique: MAC Anesthesia Airway Planned: Natural Airway Monitors Used: Standard Monitors
[2022-01-06 07:35] VITALS: BMI 26.2
[2022-01-06] MEDS: Balanced Salt Soln.-PLUS 500 ML BAG (08:24)
[2022-01-06] MEDS: Tetracaine 0.5% 4 ML BTL OS (08:24)
[2022-01-06] MEDS: Duovisc Viscoelastic System EACH 1 EACH (08:27)
[2022-01-06] MEDS: Povidone-Iodine Ophth 30 ML BTL (08:27)
[2022-01-06] MEDS: Lidocaine 2% Jelly 6 ML SYR (08:28)
[2022-01-06 08:35] VITALS: BP 136/64; PULSE 96; RESP 16; TEMP 35.9; O2SAT 96
--- NOTE | 2022-01-06 08:37 | W.PM.DSUDISC ---
Discharge Plan Disposition Patient Disposition: HOME Condition: Good Discharge Details Attending Provider: Aaron Narvaez Primary Care Provider: Miguel Lara Home Meds and New Rx's Prescriptions: No Action aspirin [Adult Low Dose Aspirin] 81 mg tablet,delayed release (DR/EC) 81 mg PO DAILY 0RF ICaps 3,[id number] uvyi-zu-hs-unit tablet extended release 1 tab PO DAILY 0RF sennosides-docusate sodium [Senna with Docusate Sodium] 8.6-50 mg tablet 2 tab-cap PO DAILY PRN Qty: 180 3RF amitriptyline 25 mg tablet 25 mg PO HS Qty: 90 3RF amlodipine 5 mg tablet 5 mg PO DAILY Qty: 90 3RF lisinopril 20 mg tablet 20 mg PO DAILY Qty: 90 4RF lisinopril-hydrochlorothiazide 20-12.5 mg tablet 1 tab PO DAILY Qty: 90 4RF metformin 500 mg tablet 500 mg PO BID Qty: 180 3RF propranolol 20 mg tablet 20 mg PO BID Qty: 180 3RF simvastatin 20 mg tablet 20 mg PO HS Qty: 90 4RF chlordiazepoxide HCl 5 mg capsule 5 mg PO HS Qty: 90 1RF Discharge Instructions Stand Alone Forms: Post-op Topical Cataract, Rubio Mullen (DSU) Discharge Orders Discharge Orders: Discharge Order (Routine); Ordered 01/06/22 Ordered By: Aaron Narvaez DS: Diagnosis Discharge Diagnosis (1) Cortical cataract of left eye: Status: Resolved (2) Nuclear sclerotic cataract of left eye: Status: Resolved (3) Posterior subcapsular age-related cataract of left eye: Status: Resolved
--- NOTE | 2022-01-06 08:38 | ROE_ITS ---
Date of service: 01/06/22 Time of Service: 08:38 Operative Note Operative Note DATE OF PROCEDURE: 01/06/22 PRE-OP DIAGNOSIS: Nuclear/cortical/posterior subcapsular cataract, left eye POST-OP DIAGNOSIS: same PROCEDURE: Cataract extraction using phacoemulsification with intraocular lens implant, left eye SURGEON: Aaron Narvaez ANESTHESIA TYPE: Local By Surgeon and MAC Refer to Anesthesia Record PATHOLOGY: none sent COMPLICATIONS: None Patient was transported to: same day Patient's condition: stable Implants: Demetris and Demetris / [employer] Tecnis [id number] Indications: Progressive decreased vision due to cataract, left eye Procedure Description: CATARACT SURGERY OPERATIVE REPORT PREOPERATIVE DIAGNOSIS: 1. Nuclear/cortical/posterior subcapsular cataract, left eye POSTOPERATIVE DIAGNOSIS: Same OPERATION: 1. Cataract extraction using phacoemulsification with posterior chamber intraocular lens implant, left eye. IOL: IOL Public Address System Mechanic/Model: Demetris & Demetris / LINA Tecnis [id number] IOL Power: + 24.0 diopters IOL Serial Number: [id number] Optic Diameter: 6.0 mm Haptic/Overall Diameter: 13.0 mm PHACO INFO: Arben Nonobaurion Vision System with OZil and Active Fluidics Cumulative Dispersed Energy (CDE): 9.12 seconds SURGEON: Aaron Narvaez MD, CAROLYN ANESTHESIA: Monitored A [facility] (MAC), with local sub-tenon's anesthetic infiltration COMPLICATIONS: None SPECIMENS: None INDICATIONS FOR PROCEDURE: The patient is an 81-year-old lady with history of diminished visual acuity in both eyes secondary to the development of bilateral cataracts. She has already undergone cataract surgery in the right eye and is doing well postoperatively. She now presents for cataract surgery in the left eye. PROCEDURE: The correct surgical eye was identified and marked as the left eye and the pupil was dilated in the preoperative area using mydriatics and cycloplegics. The dilated pupil size was 7.0 mm. She elected to proceed without oral sedation. The patient was brought to the operating room where cardiopulmonary monitoring was instituted and surgical time-out was performed, confirming the correct operative eye and IOL power. Topical anesthesia was administered and ophthalmic povidone-iodine 5% was instilled into the conjunctival fornices. Lidocaine gel was applied to the cornea and the sandi-ocular area was prepped with Betadine 10% solution and draped in the usual sterile fashion for intraocular surgery, including an aperture drape. A Tegaderm transparent film dressing was cut in half and used to cover the lashes and lid margins. Care was taken to sequester the lashes and lid margins under the Tegaderm dressing. A lid speculum was placed between the lids of the operative eye and the Arben LuxOR Revalia operating microscope was maneuvered into position. Jamie scissors were then used to make a conjunctival buttonhole approximately 6mm posterior to the limbus in the inferonasal quadrant. Blunt dissection was carried out to expose bare sclera, and a blunt-tipped sub-tenon?s anesthesia cannula was introduced and passed posteriorly along the globe where non- preserved plain lidocaine was injected into posterior sub-Tenon?s space. A sideport knife was used to make a paracentesis port superiorly/superiortemporally. Intraocular phenylephrine/lidocaine was injected int the anterior chamber.. The anterior chamber was filled with viscoelastic. A 2.4mm keratome knife was used to create a half-thickness groove at the limbus and then to construct a three-plane near-clear corneal tunnel extending 2.0mm into clear cornea at the 3:00 position. A flap was raised on the anterior capsule and capsulorhexis forceps were used to complete a continuous curvilinear capsulorhexis of 5.0 mm. Balanced salt solution was then used to perform cortical cleaving hydrodissection and nuclear hydrodelineation until the lens could be freely rotated within the capsular bag. The lens nucleus was then disassembled and removed within the capsular bag and iris plane using phacoemulsification. Residual cortical material was removed using the 45-degree angled silicone I/A tip with 0.3mm port. The posterior capsule was carefully polished to remove as much residual lens epithelial cells as safely possible. The capsular bag was then inflated and the anterior chamber deepened with viscoelastic. The lens implant described above was inserted into the capsular bag using the LINA [place] Injector. A Kuglen hook was used to dial the IOL into position. Residual viscoelastic was then removed first from posterior to the IOL, then from the anterior chamber using the I/A handpiece. The lens implant was noted to center nicely within the capsular bag. The incisions were stromally hydrated, and the anterior chamber was reformed using BSS. Then 0.5cc of moxifloxacin 1.0mg/ml were injected into the capsular bag and anterior chamber. The incisions were checked with a Weck spear and found to be secure. Several drops of ophthalmic povidone-iodine 5% were then applied to the eye followed by two drops of Imprimis combination prednisolone/moxifloxacin/nepafenac solution. The drapes were removed and a clear plastic protective eye shield was placed over the eye. The patient was then returned to Same Day Surgery in stable condition.
--- NOTE | 2022-01-06 08:56 | W.ANESPOSTOP ---
Postoperative Evaluation Date, Time and Location Date Performed: 01/06/22 Time Performed: 08:40 Patient Location: Day [facility] Unit Vital Signs Most Recent Imported Vital Signs: Most Recent Vital Signs Temp Pulse Resp BP Pulse Ox 35.9 C L 96 H 16 136/64 96 01/06/22 08:35 01/06/22 08:35 01/06/22 08:35 01/06/22 08:35 01/06/22 08:35 Pain Score Most Recent Pain Score: Most Recent Pain Score Pain Level 0 01/06/22 08:35 Assessment Mental Status: Awake (Alert & Oriented to Patient Baseline) Airway and Respiratory Function: Patent airway with normal (patient baseline) respiratory exam Cardiovascular Function: Hemodynamically Stable Hydration Status: Adequately Hydrated Nausea & Vomiting: No Nausea or Vomiting Pain: Pt. Denies Any Pain Peripheral Nerve Block: Patient did not receive a nerve block
== END 2022-01-06 09:12 | disposition home or self-care (01) ==
PROVIDERS: PCP Family Medicine; Visit Provider Ophthalmology
PROC: (CPT 66984; principal; 2022-01-06 08:15)
DX: H25.042 Posterior subcapsular polar age-related cataract, left eye (principal); E11.9 Type 2 diabetes mellitus without complications; F17.210 Nicotine dependence, cigarettes, uncomplicated; E78.5 Hyperlipidemia, unspecified; I10 Essential (primary) hypertension
CPT/HCPCS: 66984; V2632

== ENCOUNTER 2022-06-04 21:17 | Outpatient (REF) | payer MEDICARE, SELFPAY ==
[2022-06-04 21:48] LABS: Albumin ug/mg Crea 66 (<30); Albumin, Ur 2.6 mg/dL (See Note); Creatinine, Ur 39.2 mg/dL (See Note)
== END 2022-06-04 21:18 | disposition home or self-care (01) ==
LOC: LBN 21:17
PROVIDERS: PCP Family Medicine; Visit Provider Family Medicine
DX: E11.9 Type 2 diabetes mellitus without complications (principal)
CPT/HCPCS: 82043; 82570

== ENCOUNTER 2022-12-14 19:18 | Emergency (ER) | payer MEDICARE, SELFPAY ==
[2022-12-14 19:23] VITALS: BP 166/63; PULSE 99; RESP 18; TEMP 36.7; O2SAT 99
[2022-12-14 19:44] LABS: Bilirubin Negative (Negative); Blood Small (Negative); Clarity Cloudy (Clear); Glucose Negative (Negative); Ketones Negative (Negative); Leukocyte Esterase Large (Negative); Nitrite Negative (Negative); Urobilinogen 0.2 mg/dL (Up to 0.2); pH 6.5 (5-8)
[2022-12-14 19:51] LABS: C & S Indicated? Yes; WBC >50 HPF (0-5)
--- NOTE | 2022-12-14 20:01 | W.ED.GENAD ---
Discharge Plan Disposition Patient Disposition: Home Condition: Stable Discharge Details Clinical Impression: UTI (urinary tract infection) Primary Care Provider: Miguel Lara ED Provider: Jeanne Jacobson Home Meds and New Rx's Prescriptions: New cephalexin 500 mg capsule 500 mg PO BID 7 Days Qty: 14 0RF phenazopyridine [Pyridium] 200 mg tablet 200 mg PO TID PRN (Reason: pain) Qty: 6 0RF Continued aspirin [Adult Low Dose Aspirin] 81 mg tablet,delayed release (DR/EC) 81 mg PO DAILY ICaps 3,118-8-051-75 ijcf-hr-ka-unit tablet extended release 1 tab PO DAILY sennosides-docusate sodium [Senna with Docusate Sodium] 8.6-50 mg tablet 2 tab-cap PO DAILY PRN Qty: 180 3RF amitriptyline 25 mg tablet 25 mg PO HS Qty: 90 3RF simvastatin 20 mg tablet 20 mg PO HS Qty: 90 4RF lisinopril 20 mg tablet 20 mg PO DAILY Qty: 90 4RF lisinopril-hydrochlorothiazide 20-12.5 mg tablet 1 tab PO DAILY Qty: 90 4RF propranolol 20 mg tablet 20 mg PO BID Qty: 180 1RF amlodipine 5 mg tablet 5 mg PO DAILY Qty: 90 1RF chlordiazepoxide HCl 5 mg capsule 5 mg PO HS Qty: 90 1RF metformin 500 mg tablet 500 mg PO BID Qty: 180 1RF Discharge Instructions Instructions: Urinary Tract Infection in Women (ED) Additional Instructions: Your urine sample today appears consistent with a urinary tract infection. You were given 1 dose of the antibiotic Keflex and a urinary analgesic Pyridium here in the emergency department. Prescriptions for the antibiotic Keflex and the urinary analgesic Pyridium have been sent electronically to your pharmacy. Take the antibiotic as directed until finished. Take the Pyridium as needed and directed for symptoms of urinary burning and spasms. Call your primary care doctor's office tomorrow to schedule follow-up appointment earlier than your scheduled appointment on December 31 if needed. Return immediately to the emergency department if you develop any worsening or new concerning symptoms. Discharge Data Discharge Date/Time-TO BE ENTERED AT DEPARTURE: 12/14/22 20:35 Discharge Physician: Jeanne Jacobson Medical Decision Making 82-year-old female with a history of hypertension, hyperlipidemia, diabetes, prolapse of pelvic organs with history of hysterectomy and bladder lift approximately 3 years ago presents for dysuria, urinary frequency, urgency and suprapubic spasms for the past 2 weeks, much worse today. Patient appears comfortable and nontoxic. She is afebrile. Her abdomen is soft and minimally tender in the suprapubic region. She has no CVA tenderness. As patient has no systemic symptoms or severe flank or back pain, does not appear consistent with kidney stone or pyelonephritis. As patient looks so well, will treat with oral antibiotics. Previous urine culture from 2014 notes it was pansensitive to E. coli. Will cover with Keflex. She was given 1 dose of Keflex and Pyridium here and prescription sent electronically to her pharmacy. She has an appoint with her PCP on December 31. She is advised to follow-up sooner if indicated and return immediately to the emergency department if she develops any worsening or new concerning symptoms. Medical Records Medical records reviewed: Yes I reviewed the patient's medical records. Lab Data Lab results reviewed: Yes I reviewed the patient's lab results. Labs: 12/14/22 19:39 Urine - Reflex from Ua Urine Culture - Pending Laboratory Tests Range/Units 12/14/22 19:39 Urine Color (Yellow) Yellow Urine Clarity (Clear) Cloudy Urine pH (5-8) 6.5 Ur Specific [place] (1.005-1.025) 1.020 Urine Protein (Negative) mg/dL 30 H Urine Ketones (Negative) mg/dL Negative Urine Blood (Negative) Small H Urine Nitrite (Negative) Negative Urine Bilirubin (Negative) Negative Urine Urobilinogen (Up to 0.2) mg/dL 0.2 Ur Leukocyte Esterase (Negative) Large H Urine RBC Not Applicable Urine WBC (0-5) HPF >50 H Ur Epithelial Cells Not Applicable Urine Crystals Not Applicable Urine Bacteria Not Applicable Urine Mucus Not Applicable Ur Culture Indicated? Yes Urine Glucose (Negative) mg/dL Negative HPI General Mode of arrival: ambulatory. Date/Time Provider Initiated Documentation: 12/14/22 19:19. Limitations to Documentation: no limitations. Information obtained by: patient. HPI Narrative: Patient is an 82-year-old female with history of hypertension, hyperlipidemia, diabetes, prolapse of pelvic organs followed by hysterectomy and bladder lift who presents for urinary frequency, urgency, dysuria and spasm-like suprapubic pressure over the past 2 weeks, worse today. Patient states her symptoms became much more intense today. She states they have been tolerable before today. Patient denies any fever, nausea, vomiting, diarrhea or severe abdominal or back pain. Related Data Home Medications Medication Instructions Recorded Confirmed aspirin 81 mg tablet,delayed 81 mg PO DAILY 06/01/18 12/14/22 release (Adult Low Dose Aspirin) [id number] 1 tab PO DAILY 01/28/19 12/14/22 3,300 unit-5 mg-200mg-75 unit tablet ER (ICaps) sennosides 8.6 mg-docusate sodium 2 tab-cap PO DAILY PRN #180 tabs 03/06/20 12/14/22 50 mg tablet (Senna with Docusate Sodium) amitriptyline 25 mg tablet 25 mg PO HS #90 tab-caps 01/20/22 12/14/22 simvastatin 20 mg tablet 20 mg PO HS #90 tabs 05/21/22 12/14/22 lisinopril 20 mg tablet 20 mg PO DAILY #90 tab-caps 07/25/22 12/14/22 lisinopril 20 1 tab PO DAILY #90 tab-caps 07/25/22 12/14/22 mg-hydrochlorothiazide 12.5 mg tablet propranolol 20 mg tablet 20 mg PO BID #180 tab-caps 07/25/22 12/14/22 amlodipine 5 mg tablet 5 mg PO DAILY #90 tab-caps 11/18/22 12/14/22 chlordiazepoxide HCl 5 mg capsule 5 mg PO HS #90 tabs 11/18/22 12/14/22 metformin 500 mg tablet 500 mg PO BID #180 tabs 11/18/22 12/14/22 cephalexin 500 mg capsule 500 mg PO BID 7 days #14 caps 12/14/22 phenazopyridine 200 mg tablet 200 mg PO TID PRN pain 6 doses #6 12/14/22 (Pyridium) tabs Previous Rx's Medication Instructions Recorded sennosides 8.6 mg-docusate sodium 2 tab-cap PO DAILY PRN #180 tabs 03/06/20 50 mg tablet (Senna with Docusate Sodium) amitriptyline 25 mg tablet 25 mg PO HS #90 tab-caps 01/20/22 simvastatin 20 mg tablet 20 mg PO HS #90 tabs 05/21/22 lisinopril 20 mg tablet 20 mg PO DAILY #90 tab-caps 07/25/22 lisinopril 20 1 tab PO DAILY #90 tab-caps 07/25/22 mg-hydrochlorothiazide 12.5 mg tablet propranolol 20 mg tablet 20 mg PO BID #180 tab-caps 07/25/22 amlodipine 5 mg tablet 5 mg PO DAILY #90 tab-caps 11/18/22 chlordiazepoxide HCl 5 mg capsule 5 mg PO HS #90 tabs 11/18/22 metformin 500 mg tablet 500 mg PO BID #180 tabs 11/18/22 cephalexin 500 mg capsule 500 mg PO BID 7 days #14 caps 12/14/22 phenazopyridine 200 mg tablet 200 mg PO TID PRN pain 6 doses #6 12/14/22 (Pyridium) tabs Allergies Allergy/AdvReac Type Severity Reaction Status Date / Time No Known Allergies Allergy Verified 06/04/22 10:06 General Stated Complaint: Urinary MONO: 4 Review of Systems All systems reviewed & are unremarkable except as noted in HPI and below Constitutional Constitutional: Reports as per HPI, Denies chills and Denies fever(s) Eyes Eyes: Denies blurry vision ENT Ears, Nose, Mouth, and Throat: Denies dizziness, Denies sore throat and Denies throat swelling Cardiovascular Cardiovascular: Denies chest pain and Denies dyspnea Respiratory Respiratory: Denies cough and Denies dyspnea Gastrointestinal Gastrointestinal: Denies abdominal pain, Denies diarrhea and Denies vomiting Genitourinary Genitourinary: Denies hematuria, Reports dysuria, Reports urinary hesitancy and Reports urinary urgency Comments: urinary frequency Musculoskeletal Musculoskeletal: Denies back pain and Denies numbness Integumentary/Breasts Skin/Breast: Denies lesions and Denies rash Neurologic Neurologic: Denies dizziness, Denies localized weakness and Denies numbness Allergic/Immunologic Allergic/Immunologic: Denies throat swelling PFSH All Active Problems (Updated 12/14/22 @ 20:21 by Jeanne Jacobson DO) UTI (urinary tract infection) (Acute) Smoker (Acute) Neurodermatitis (Acute) eczema Hyperlipidemia (Acute) Essential hypertension (Acute 08/25/13) Diabetes mellitus (Chronic 03/16/12) Arthritis (Acute) Anxiety (Acute) H/O 30 yr. benzodiazepine use Medical History Cystocele with uterine prolapse (06/30/11) Treated with LeFort colpocleisis, posterior repair at [facility] [place] 2019 Pelvic organ prolapse quantification stage 4 cystocele Long-standing Gellhorn use, 06/2018 changed with donut pessary use of insertion and removal. For 2018 [facility] [place] urogynecology consult: Patient recommended to have a colpocleisis. Pessary maintenance (08/05/17) Long-standing use of 64 mm longstem Gelhorn. Change to 64 mm donut pessary 06/21/18. Not well tolerated. Pt will stop all pessary use and be eval for surgical Rx at [facility] [place]. Tobacco use In the pre-contemplative stage of cessation. Surgical History Biopsy of breast (~2000) Endometrial Biopsy neg History of bilateral salpingo-oophorectomy 07/20/19 History of total vaginal hysterectomy (TVH) Patient also had a Vaginectomy 07/20/19 Tonsillectomy and adenoidectomy Family History Father Personal history of malignant neoplasm COLON FAMILY HISTORY Heart disease Social History Smoking/Tobacco Use Status: Current every day Tobacco Type: cigarettes Smoking packs per day: 1 Smoking cigarettes per day: 20.0 Smoking risk assessment performed?: Yes Alcohol Intake: never Substance use type: does not use Household members: none Sexually active: No Tete/Hoahaoism: caodaism Seatbelt use: always Do you feel safe at home: Yes Do you feel safe in your relationship?: Yes Additional Social history: lives alone-will have somebody to care for her post-op Female Reproductive History Menstrual Menopause type: natural History History 4 Para Hx # Term Pregnancies 3 Multiple births Hx # Pregnancies Ectopic pregnancies AB induced Hx Number of Living Children AB spontaneous Exam Const General: cooperative, healthy appearing and no acute distress Orientation: alert, awake and oriented x3 HENMT Head: normal to inspection Face and sinus: normal facial exam Eyes General: appearance normal, both eyes and all related structures EOM: EOM intact bilaterally Neck Neck: normal visual inspection and No submandibular swelling Lymphatic: no lymphadenopathy noted Chest Chest: normal inspection of the chest and no tenderness Resp Effort & Inspection: normal respiratory effort and able to speak in complete sentences Auscultation: clear to auscultation bilaterally Cardio Rate: regular rate Rhythm: regular rhythm GI Inspection: normal to inspection Palpation: soft, not firm, not rigid and tender suprapubicly (minimal) Auscultation: hypoactive bowel sounds Back/Spine/Pelvis Back: no CVA tenderness Skin General skin exam: no rashes or lesions noted Neuro General: patient alert, patient awake and patient oriented x3 Cognition: normal cognition Speech: speech normal Motor: muscle tone normal throughout Sensory Exam: no sensory deficits noted Extrem General: normal to inspection, full ROM, capillary refill normal, no calf tenderness bilaterally and no edema Psych Appearance: grossly normal Mental Status: mental status grossly normal Speech and Movement: speech and movement normal Affect: normal affect Course Vital Signs Vital signs: Vital Signs Temperature 98.1 F 12/14/22 19:23 Pulse 99 H 12/14/22 19:23 Respiratory Rate 18 12/14/22 19:23 Blood Pressure 166/63 H 12/14/22 19:23 Pulse Oximetry 99 12/14/22 19:23 Temperature 98.1 F 12/14/22 19:23 Temperature Source Oral 12/14/22 19:23 Pulse 99 H 12/14/22 19:23 Respiratory Rate 18 12/14/22 19:23 Respiratory Effort Normal 12/14/22 19:29 Blood Pressure 166/63 H 12/14/22 19:23 Blood Pressure Position Sitting 12/14/22 19:23 Pulse Oximetry 99 12/14/22 19:23 Oxygen Delivery Method Room Air 12/14/22 19:23 Oxygen Flow Rate 0 12/14/22 19:23 Pain Level 8 12/14/22 19:23 Lab/Test Results Lab/Test Results: 12/14/22 19:39 Urine - Reflex from Ua Urine Culture - Pending Laboratory Tests Range/Units 12/14/22 19:39 Urine Color (Yellow) Yellow Urine Clarity (Clear) Cloudy Urine pH (5-8) 6.5 Ur Specific [place] (1.005-1.025) 1.020 Urine Protein (Negative) mg/dL 30 H Urine Ketones (Negative) mg/dL Negative Urine Blood (Negative) Small H Urine Nitrite (Negative) Negative Urine Bilirubin (Negative) Negative Urine Urobilinogen (Up to 0.2) mg/dL 0.2 Ur Leukocyte Esterase (Negative) Large H Urine RBC Not Applicable Urine WBC (0-5) HPF >50 H Ur Epithelial Cells Not Applicable Urine Crystals Not Applicable Urine Bacteria Not Applicable Urine Mucus Not Applicable Ur Culture Indicated? Yes Urine Glucose (Negative) mg/dL Negative
[2022-12-14] MEDS: Phenazopyridine 100 MG TAB PO (20:06)
[2022-12-14] MEDS: Cephalexin 500 MG CAP PO (20:06)
--- NOTE | 2022-12-18 08:25 | NUR.NOTE ---
Nursing Note: Accessed pt chart to determine antibiotic on discharge.
--- NOTE | 2022-12-18 08:49 | W.EDPROG ---
Date of service: 12/14/22 Time of Service: 08:55 Medical Decision Making Received results from patient for her urine culture. Contacted patient over the phone and she stated she was stable but still having symptoms which the Pyridium is helping with but not fully resolving. Urine culture results show Pseudomonas infection. Patient currently on Keflex which she was encouraged to stop and will start patient on Cipro. Did discuss with patient potential side effects of sharon quinolones and to stop medication for any side effects and contact her primary care provider if they occur. Prescription was sent to patient's pharmacy. Patient had no further questions after our discussion. Medical Records Medical records reviewed: Yes I reviewed the patient's medical records. Discharge Plan Disposition Patient Disposition: Home Condition: Stable Discharge Details Clinical Impression: UTI (urinary tract infection) Primary Care Provider: Miguel Lara ED Provider: Jeanne Jacobson Home Meds and New Rx's Prescriptions: New phenazopyridine [Pyridium] 200 mg tablet 200 mg PO TID PRN (Reason: pain) Qty: 6 0RF ciprofloxacin HCl [Cipro] 500 mg tablet 500 mg PO BID Qty: 10 0RF Continued aspirin [Adult Low Dose Aspirin] 81 mg tablet,delayed release (DR/EC) 81 mg PO DAILY ICaps [id number] lnim-za-ox-unit tablet extended release 1 tab PO DAILY sennosides-docusate sodium [Senna with Docusate Sodium] 8.6-50 mg tablet 2 tab-cap PO DAILY PRN Qty: 180 3RF amitriptyline 25 mg tablet 25 mg PO HS Qty: 90 3RF simvastatin 20 mg tablet 20 mg PO HS Qty: 90 4RF lisinopril 20 mg tablet 20 mg PO DAILY Qty: 90 4RF lisinopril-hydrochlorothiazide 20-12.5 mg tablet 1 tab PO DAILY Qty: 90 4RF propranolol 20 mg tablet 20 mg PO BID Qty: 180 1RF amlodipine 5 mg tablet 5 mg PO DAILY Qty: 90 1RF chlordiazepoxide HCl 5 mg capsule 5 mg PO HS Qty: 90 1RF metformin 500 mg tablet 500 mg PO BID Qty: 180 1RF Discharge Instructions Instructions: Urinary Tract Infection in Women (ED) Additional Instructions: Your urine sample today appears consistent with a urinary tract infection. You were given 1 dose of the antibiotic Keflex and a urinary analgesic Pyridium here in the emergency department. Prescriptions for the antibiotic Keflex and the urinary analgesic Pyridium have been sent electronically to your pharmacy. Take the antibiotic as directed until finished. Take the Pyridium as needed and directed for symptoms of urinary burning and spasms. Call your primary care doctor's office tomorrow to schedule follow-up appointment earlier than your scheduled appointment on December 31 if needed. Return immediately to the emergency department if you develop any worsening or new concerning symptoms. Discharge Data Discharge Date/Time-TO BE ENTERED AT DEPARTURE: 12/14/22 20:35 Discharge Physician: Jeanne Jacobson
== END 2022-12-14 20:35 | disposition home or self-care (01) ==
PROVIDERS: Student in an Organized Health Care Education/Training Program; Emergency Provider Physician Assistant; PCP Family Medicine
DX: N39.0 Urinary tract infection, site not specified (principal); B96.5 Pseudomonas (aeruginosa) (mallei) (pseudomallei) as the cause of diseases classified elsewhere
CPT/HCPCS: 87077; 99283; 81003; 81015; 87086; 87186

== ENCOUNTER 2023-01-21 11:10 | Outpatient (CLI) | payer MEDICARE, SELFPAY ==
[2023-01-21 13:00] LABS: CREATININE 0.9 mg/dL (0.55-1.02); Estimated GFR 63.83 (mL/min/1.73m2); Potassium 4.6 mmol/L (3.5-5.1)
[2023-01-21 14:17] LABS: Vitamin B12 284 pg/mL (193-986)
== END 2023-01-21 11:11 | disposition home or self-care (01) ==
PROVIDERS: PCP Family Medicine; Referring Provider Family Medicine; Visit Provider Family Medicine
DX: I10 Essential (primary) hypertension (principal); D64.9 Anemia, unspecified; E53.8 Deficiency of other specified B group vitamins
CPT/HCPCS: 36415; 80186; 83090; 82565; 82607; 84132

== ENCOUNTER 2023-03-13 02:57 | Outpatient (CLI) | payer MEDICARE, SELFPAY ==
[2023-03-16 11:05] LABS: Homocysteine 14.4 umol/L (5.0-13.9)
== END 2023-03-13 02:58 | disposition home or self-care (01) ==
LOC: LBO 02:57
PROVIDERS: PCP Family Medicine; Visit Provider Family Medicine
DX: E53.8 Deficiency of other specified B group vitamins (principal); I10 Essential (primary) hypertension; D64.9 Anemia, unspecified; E11.9 Type 2 diabetes mellitus without complications; F41.8 Other specified anxiety disorders; Z79.899 Other long term (current) drug therapy
CPT/HCPCS: 36415; 80186; 83090

== ENCOUNTER 2023-12-24 12:41 | Observation (INO) | payer MEDICARE, SELFPAY ==
[2023-12-24] VITALS (11 sets, daily range): BP systolic 107–155; BP diastolic 51–85; PULSE 75–91; RESP 14–20; TEMP 35.7–37; O2SAT 95–98
--- NOTE | 2023-12-24 13:26 | ED.GENADUL_ITS ---
Discharge Plan Disposition Patient Disposition: Admit to [facility] Condition: Stable Discharge Details Chief Complaint: Orthopedic Clinical Impression: Closed right ankle fracture Primary Care Provider: Miguel Lara ED Provider: Jai Contreras Home Meds and New Rx's Prescriptions: No Action aspirin [Adult Low Dose Aspirin] 81 mg tablet,delayed release (DR/EC) 81 mg PO DAILY ICaps [id number] [id number]-[id number]-unit tablet extended release 1 tab PO DAILY sennosides-docusate sodium [Senna with Docusate Sodium] 8.6-50 mg tablet 2 tab-cap PO DAILY PRN Qty: 180 3RF cyanocobalamin (vitamin B-12) 1,000 mcg capsule 1,000 mcg PO DAILY folic acid 800 mcg tablet 0.8 mg PO DAILY amitriptyline 25 mg tablet 25 mg PO HS Qty: 90 3RF amlodipine 5 mg tablet 5 mg PO DAILY Qty: 90 1RF lisinopril 20 mg tablet 20 mg PO DAILY Qty: 90 4RF lisinopril-hydrochlorothiazide 20-12.5 mg tablet 1 tab PO DAILY Qty: 90 4RF metformin 500 mg tablet 500 mg PO BID Qty: 180 1RF propranolol 20 mg tablet 20 mg PO BID Qty: 180 3RF simvastatin 20 mg tablet 20 mg PO HS Qty: 90 4RF chlordiazepoxide HCl 5 mg capsule 5 mg PO HS Qty: 90 1RF HPI General Mode of arrival: ambulatory . Date/Time Provider Initiated Documentation: 12/24/23 13:02 . Limitations to Documentation: no limitations . Information obtained by: patient . HPI Narrative: 83-year-old female with multiple medical problems including history of hypertension, diabetes, smoker, here with right ankle pain and deformity after slip and fall on ice/snow just prior to arrival. Patient notes she was walking on her driveway using ski poles and lost her balance and somehow spun around landed on the ground. She injured her ankle during the fall. She did not hit her head. She denies head or neck pain. No chest pain or abdominal pain. No pelvic pain. No upper leg pain. Related Data Home Medications Medication Instructions Recorded Confirmed aspirin 81 mg tablet,delayed 81 mg PO DAILY 06/01/18 07/23/23 release (Adult Low Dose Aspirin) [id number]-mvzlimw-min 1 tab PO DAILY 01/28/19 07/23/23 3,300 unit-5 mg-200mg-75 unit tablet ER (ICaps) sennosides 8.6 mg-docusate sodium 2 tab-cap (2 x 8.6-50 mg) PO DAILY 03/06/20 07/23/23 50 mg tablet (Senna with Docusate PRN #180 tabs Sodium) cyanocobalamin (vitamin B-12) 1,000 mcg PO DAILY 07/23/23 07/23/23 1,000 mcg capsule folic acid 800 mcg tablet 0.8 mg PO DAILY 07/23/23 07/23/23 amitriptyline 25 mg tablet 25 mg PO HS #90 tab-caps 10/24/23 amlodipine 5 mg tablet 5 mg PO DAILY #90 tab-caps 10/24/23 lisinopril 20 mg tablet 20 mg PO DAILY #90 tab-caps 10/24/23 lisinopril 20 1 tab PO DAILY #90 tab-caps 10/24/23 mg-hydrochlorothiazide 12.5 mg tablet metformin 500 mg tablet 500 mg PO BID #180 tabs 10/24/23 propranolol 20 mg tablet 20 mg PO BID #180 tab-caps 10/24/23 simvastatin 20 mg tablet 20 mg PO HS #90 tabs 10/24/23 chlordiazepoxide HCl 5 mg capsule 5 mg PO HS #90 tabs 11/17/23 Previous Rx's Medication Instructions Recorded sennosides 8.6 mg-docusate sodium 2 tab-cap (2 x 8.6-50 mg) PO DAILY 03/06/20 50 mg tablet (Senna with Docusate PRN #180 tabs Sodium) amitriptyline 25 mg tablet 25 mg PO HS #90 tab-caps 10/24/23 amlodipine 5 mg tablet 5 mg PO DAILY #90 tab-caps 10/24/23 lisinopril 20 mg tablet 20 mg PO DAILY #90 tab-caps 10/24/23 lisinopril 20 1 tab PO DAILY #90 tab-caps 10/24/23 mg-hydrochlorothiazide 12.5 mg tablet metformin 500 mg tablet 500 mg PO BID #180 tabs 10/24/23 propranolol 20 mg tablet 20 mg PO BID #180 tab-caps 10/24/23 simvastatin 20 mg tablet 20 mg PO HS #90 tabs 10/24/23 chlordiazepoxide HCl 5 mg capsule 5 mg PO HS #90 tabs 11/17/23 Allergies Allergy/AdvReac Type Severity Reaction Status Date / Time No Known Allergies Allergy Verified 01/21/23 10:58 General Stated Complaint: Orthopedic MONO: 4 Exam Const General: cooperative and no acute distress HENCA Head: normocephalic and atraumatic Mouth: moist mucous membranes Resp Auscultation: clear to auscultation bilaterally, no rales, no rhonchi and no wheezes Cardio Rate: regular rate and not tachycardic Rhythm: regular rhythm GI Palpation: soft, not firm, no guarding, no masses, not rigid and nontender Back/Spine/Pelvis Cervical Spine: cervical ROM normal and No cervical spinal tenderness Thoracic/Lumbar Spine: No thoracic spinal tenderness and No lumbar spinal tenderness Pelvis: no pain with anterior-posterior compression and no pain with lateral compression Neuro General: patient alert, patient awake and tone normal Psych Appearance: grossly normal Mental Status: mental status grossly normal Course Vital Signs Vital signs: Vital Signs Temperature 37.0 C 12/24/23 12:43 Pulse 82 12/24/23 12:43 Respiratory Rate 16 12/24/23 12:43 Pulse Oximetry 98 12/24/23 12:43 Temperature 37.0 C 12/24/23 12:43 Pulse 82 12/24/23 12:43 Respiratory Rate 16 12/24/23 12:43 Respiratory Effort Normal 12/24/23 12:46 Blood Pressure 155/85 H 12/24/23 12:47 Pulse Oximetry 98 12/24/23 12:43 Pain Level 0 12/24/23 13:00 Medical Decision Making 1328?-83-year-old female presents after slip and fall on ice/no with injury to her right ankle. Patient has prior history of remote fracture of the right ankle. Patient has significant tenderness anteriorly with deformity. Patient neurovascular intact distally. X-ray of the ankle shows posterior malleolus fracture with dislocation of the ankle. Prior healed distal tib-fib with some angulation noted. 1533 --patient evaluated by Dr. Ivy. Dr. Ivy performed hematoma block and reduced fracture dislocation and placed in splint. He will admit the patient for surgery tomorrow. Lab Data Lab results reviewed: Yes I reviewed the patient's lab results. Labs: Laboratory Tests Range/Units 12/24/23 14:35 WBC (4.4-10.8) 10^3/uL 12.31 H RBC (3.93-5.22) 10^6/uL 4.51 Hgb (11.2-15.7) g/dL 13.3 Hct (36.0-46.0) % 40.2 MCV (80-95) fL 89 MCH (27.0-33.0) pg 29.5 MCHC (32.0-36.0) % 33.1 RDW (11.7-14.6) % 13.2 Plt Count (130-400) 10^3/uL 364 MPV (8.0-11.0) fL 9.5 Immature Gran % 0.5 Neutrophils % 81.3 Lymphocytes % 12.4 Monocytes % 4.2 Eosinophils % 1.1 Basophils % 0.5 Nucleated RBC % (0.0-0.3) % 0.0 Absolute Neutrophils (1.2-6.7) 10^3/uL 10.01 H Absolute Lymphocytes (1.2-3.4) 10^3/uL 1.53 Absolute Monocytes (0.1-0.8) 10^3/uL 0.52 Absolute Eosinophils (0.0-0.7) 10^3/uL 0.14 Absolute Basophils (0.0-0.2) 10^3/uL 0.06 Sodium (136-145) mmol/L 133 L Potassium (3.5-5.1) mmol/L 4.2 Chloride (98-107) mmol/L 96 L Carbon Dioxide (21.0-32.0) mmol/L 25.8 Anion Gap (3-11) mmol/L 11.2 H BUN (7-18) mg/dL 20 H Creatinine (0.55-1.02) mg/dL 0.9 Est GFR (CKD-EPI 2020) (mL/min/1.73m2) 63.43 Glucose (74-106) mg/dL 190 H Calcium (8.5-10.1) mg/dL 9.2 Total Bilirubin (0.2-1.0) mg/dL 0.3 AST (15-37) U/L 17 ALT (14-59) U/L 21 Alkaline Phosphatase (46-116) U/L 136 H Total Protein (6.4-8.2) g/dL 8.2 Albumin (3.4-5.0) g/dL 3.8 Quality:SDOH Health Related Social Needs: No Data to Display PFSH All Active Problems (Updated 12/24/23 @ 15:36 by Jai Contreras MD) Closed right ankle fracture (Acute) Low vitamin B12 level (Acute) Peripheral neuropathy (Acute) Smoker (Acute) Neurodermatitis (Acute) eczema Hyperlipidemia (Acute) Essential hypertension (Acute 08/25/13) Diabetes mellitus (Chronic 03/16/12) Arthritis (Acute) Anxiety (Acute) H/O 30 yr. benzodiazepine use Medical History Pessary maintenance (08/05/17) Long-standing use of 64 mm longstem Gelhorn. Change to 64 mm donut pessary 06/21/18. Not well tolerated. Pt will stop all pessary use and be eval for surgical Rx at [facility]. Cystocele with uterine prolapse (06/30/11) Treated with LeFort colpocleisis, posterior repair at [facility] 2019 Tobacco use In the pre-contemplative stage of cessation. Pelvic organ prolapse quantification stage 4 cystocele Long-standing Gellhorn use, 06/2018 changed with donut pessary use of insertion and removal. For 2019 [facility] urogynecology consult: Patient recommended to have a colpocleisis. Surgical History History of bilateral salpingo-oophorectomy 07/20/19 History of total vaginal hysterectomy (TVH) Patient also had a Vaginectomy 07/20/19 Tonsillectomy and adenoidectomy Endometrial Biopsy neg Biopsy of breast (~2000) Family History Father Personal history of malignant neoplasm COLON FAMILY HISTORY Heart disease Social History Smoking/Tobacco Use Status: Current every day Tobacco Type: cigarettes Smoking packs per day: 1 Smoking cigarettes per day: 20.0 Smoking risk assessment performed?: Yes Alcohol Intake: never Substance use type: does not use Household members: none Sexually active: No Tete/Zoroastrian: cheondoism Seatbelt use: always Do you feel safe at home: Yes Do you feel safe in your relationship?: Yes Additional Social history: lives alone-will have somebody to care for her post- op Female Reproductive History Menstrual Menopause type: natural History History 4 Para Hx # Term Pregnancies 3 Multiple births Hx # Pregnancies Ectopic pregnancies AB induced Hx Number of Living Children AB spontaneous
--- NOTE | 2023-12-24 13:32 | DI.RAD_ITS ---
Exam(s) XR ANKLE RT COMPLETE EXAM: XR ANKLE RT COMPLETE CLINICAL HISTORY: fall, pain, deformity. TECHNIQUE: 2D digital imaging was performed. Three views. COMPARISON: No exams were available for comparison FINDINGS: BONES: Trimalleolar fracture. Posterior dislocation of the talus with respect to the majority of the distal tibia. The posterior malleolar fragment is aligned with the talus. Old distal tibial and fi bular fractures. No bony destructive lesion is seen. Small heel spurs. Bones appear osteopenic. JOINTS: No significant joint space narrowing. SOFT TISSUE: Swelling around the malleoli. IMPRESSION: Trimalleolar fracture with posterior displacement of the talus. DATA REPOSITORY: RADIATION DOSE DELIVERED:
[2023-12-24 14:44] LABS: Abs Immature Grans 0.06 10^3/uL (0.0-0.06); Absolute Basophil Count 0.06 10^3/uL (0.0-0.2); Absolute Lymphocyte Count 1.53 10^3/uL (1.2-3.4); Absolute Monocyte Count 0.52 10^3/uL (0.1-0.8); Absolute Neutrophil Count 10.01 10^3/uL (1.2-6.7); Basophils % 0.5; Eosinophils % 1.1; HCT 40.2 % (36.0-46.0); HGB 13.3 g/dL (11.2-15.7); Immature Grans % 0.5; Lymphocytes % 12.4; MCH 29.5 pg (27.0-33.0); MCHC 33.1 % (32.0-36.0); MCV 89 fL (80-95); MPV 9.5 fL (8.0-11.0); Monocytes % 4.2; Neutrophils % 81.3; Platelet Count 364 10^3/uL (130-400); RBC 4.51 10^6/uL (3.93-5.22); RDW 13.2 % (11.7-14.6); RDW-SD 43.1 fL; WBC 12.31 10^3/uL (4.4-10.8)
[2023-12-24 14:49] LABS: Absolute Eosinophil Count 0.14 10^3/uL (0.0-0.7)
[2023-12-24 14:58] LABS: ALT 21 U/L (14-59); AST 17 U/L (15-37); Albumin 3.8 g/dL (3.4-5.0); Alkaline Phosphatase 136 U/L (46-116); Anion Gap 11.2 mmol/L (3-11); BUN 20 mg/dL (7-18); Bilirubin, Total 0.3 mg/dL (0.2-1.0); CO2 25.8 mmol/L (21.0-32.0); CREATININE 0.9 mg/dL (0.55-1.02); Calcium 9.2 mg/dL (8.5-10.1); Chloride 96 mmol/L (98-107); Estimated GFR 63.43 (mL/min/1.73m2); Glucose 190 mg/dL (74-106); Potassium 4.2 mmol/L (3.5-5.1); Sodium 133 mmol/L (136-145); Total Protein 8.2 g/dL (6.4-8.2)
--- NOTE | 2023-12-24 15:30 | DI.RAD_ITS ---
Exam(s) XR ANKLE RT COMPLETE EXAM: XR ANKLE RT COMPLETE CLINICAL HISTORY: post reduction. TECHNIQUE: 2D digital imaging was performed. COMPARISON: CR XR ANKLE RT COMPLETE from 12/24/2023 FINDINGS: 3 in cast views Post reduction images reveal improved alignment of the fracture fragments and tibiotalar joint. IMPRESSION: Improved alignment on these post reduction images. DATA REPOSITORY: RADIATION DOSE DELIVERED:
[2023-12-24] MEDS: fentaNYL 100 MCG/2 ML VIAL (15:39)
--- NOTE | 2023-12-24 15:43 | W.ORTHOCONSU ---
Date of service: 12/24/23 Time of Service: 15:30 Assessment and Plan Assessment and plan (1) Fracture dislocation of right ankle: Status: Acute Assessment and plan: 83-year-old female with right ankle bimalleolar fracture dislocation Patient reports slip and fall earlier today with notable ankle pain and deformity. Helped and eventually brought to the hospital by her neighbors. She lives alone in a mobile home. She is quite comfortable, but does note her ankle looks rather deformed. Denies any baseline diabetic neuropathy, also denies any numbness or tingling at this time. She typically walks without any assist device. She reports a remote history unable to recall details of right ankle/leg fractures and states she always walked, but somewhat abnormally since that healed. She reports she takes a number of medicines, but is not entirely sure. She has hypertension and diabetes. Her last hemoglobin A1c was 7.1 in July 2023, previously 6.8. She does smoke regularly about a pack per day. Right ankle has obvious deformity, there is early edema and early probable fracture blisters anteriorly and laterally. There is tenderness as expected around the fracture site. Intact cap refill, dorsalis pedis pulse, and motor wiggling all toes without difficulty. Denies any numbness or tingling throughout the foot and ankle. Patient is remarkably comfortable at rest. Diminutive size foot and ankle. Right ankle x-rays confirm bimalleolar fracture dislocation with low distal fibula fracture and large posterior malleolus fracture with straight posterior fracture. No medial malleolus fracture appreciated. Chronic deformities healed mid distal fibula and tibia, which appears to be an old distal tib-fib fracture treated nonoperatively. Reviewed with patient, she strongly opposes any sedation for reduction. She elects for hematoma block, tolerated very well, ankle readily reduced, but markedly unstable posteriorly. Maintained in splint as best possible. Patient strongly wants to go home and follow-up with surgery at some other time. I reviewed this is risky given the high likelihood of redislocation as well as the fact the patient lives alone and she admits she will be ambulatory on this foot and ankle through the splint which raises the chance of displacement dislocation swelling blisters and problems with future treatment. In the end, she is agreeable to admission. She has stable chronic medical problems, I am happy to admit the patient with a medical consultation as needed. She will be n.p.o. after midnight, strict elevation right ankle, and plan for surgery: Right ankle ORIF tomorrow. Patient eager for discharge home after surgery, but we reviewed again that she will need to be evaluated for safe ambulation. She would prefer to avoid any home health or physical therapy services, but I again reminded her that these might be helpful and increase her safety especially if she wants to expedite her discharge back home where she lives alone. Definitive surgery would have been considered tonight, but the operating room is currently busy with general surgery procedure without an anticipated completion time. Postreduction her exam was reassuring, she is even more comfortable, neurovascular intact, no signs or symptoms of compartment syndrome or other concerning problem. PFSH All Active Problems (Updated 12/24/23 @ 16:06 by Dat Ivy MD) Fracture dislocation of right ankle (Acute 12/24/23) Closed right ankle fracture (Acute) Low vitamin B12 level (Acute) Peripheral neuropathy (Acute) Smoker (Acute) Neurodermatitis (Acute) eczema Hyperlipidemia (Acute) Essential hypertension (Acute 08/25/13) Diabetes mellitus (Chronic 03/16/12) Arthritis (Acute) Anxiety (Acute) H/O 30 yr. benzodiazepine use Medical History Pessary maintenance (08/05/17) Long-standing use of 64 mm longstem Gelhorn. Change to 64 mm donut pessary 06/21/18. Not well tolerated. Pt will stop all pessary use and be eval for surgical Rx at [facility]. Cystocele with uterine prolapse (06/30/11) Treated with LeFort colpocleisis, posterior repair at [facility] 2019 Tobacco use In the pre-contemplative stage of cessation. Pelvic organ prolapse quantification stage 4 cystocele Long-standing Gellhorn use, 06/2018 changed with donut pessary use of insertion and removal. For 2019 [facility] urogynecology consult: Patient recommended to have a colpocleisis. Surgical History History of bilateral salpingo-oophorectomy 07/20/19 History of total vaginal hysterectomy (TVH) Patient also had a Vaginectomy 07/20/19 Tonsillectomy and adenoidectomy Endometrial Biopsy neg Biopsy of breast (~1999) Family History Father Personal history of malignant neoplasm COLON FAMILY HISTORY Heart disease Social History Smoking/Tobacco Use Status: Current every day Tobacco Type: cigarettes Smoking packs per day: 1 Smoking cigarettes per day: 20.0 Smoking risk assessment performed?: Yes Alcohol Intake: never Substance use type: does not use Household members: none Sexually active: No Tete/Gnosticism: hindu Seatbelt use: always Do you feel safe at home: Yes Do you feel safe in your relationship?: Yes Additional Social history: lives alone-will have somebody to care for her post-op Female Reproductive History Menstrual Menopause type: natural History History 4 Para Hx # Term Pregnancies 3 Multiple births Hx # Pregnancies Ectopic pregnancies AB induced Hx Number of Living Children AB spontaneous Results Last Vital Signs Temp 98.6 F 12/24/23 12:43 Pulse 82 12/24/23 15:08 Resp 14 12/24/23 15:08 BP 155/85 H 12/24/23 12:47 Pulse Ox 97 12/24/23 15:08 Labs 12/24/23 14:35 12/24/23 14:35 Labs: Laboratory Results - last 24 hr 12/24/23 14:35 WBC 12.31 H RBC 4.51 Hgb 13.3 Hct 40.2 MCV 89 MCH 29.5 MCHC 33.1 RDW 13.2 Plt Count 364 MPV 9.5 Immature Gran % 0.5 Neutrophils % 81.3 Lymphocytes % 12.4 Monocytes % 4.2 Eosinophils % 1.1 Basophils % 0.5 Nucleated RBC % 0.0 Absolute Neutrophils 10.01 H Absolute Lymphocytes 1.53 Absolute Monocytes 0.52 Absolute Eosinophils 0.14 Absolute Basophils 0.06 Sodium 133 L Potassium 4.2 Chloride 96 L Carbon Dioxide 25.8 Anion Gap 11.2 H BUN 20 H Creatinine 0.9 Est GFR (CKD-EPI 2020) 63.43 Glucose 190 H Calcium 9.2 Total Bilirubin 0.3 AST 17 ALT 21 Alkaline Phosphatase 136 H Total Protein 8.2 Albumin 3.8 Procedures Orthopedic Joint Reduction Right ankle: Time out performed: Yes Side: right Joint reduction location: ankle Analgesia: hematoma block Local anesthetic used: lidocaine 1% Amount of anesthetic used (ml): 10 Technique used: direct manipulation Post-reduction neuro exam: intact Post-reduction vascular exam: intact Post-reduction x-ray obtained: Yes Post-reduction x-ray results: reduced (Majority reduced, some expected posterior displacement still present) Splint applied: Yes Patient tolerated procedure: well Additional comments: CPT #81811
--- NOTE | 2023-12-24 15:51 | NUR.NOTE ---
Nursing Note: Pt expressed some anxiousness in anticipation of ankle reduction, however she did well during the procedure. This program writer remained at bedside to assist with support, such as holding pt's hand per pt request. Pt denies pain through entire procedure, and tolerates the reduction with 50mcg of fentanyl via IV. She is assisted back to a comfortable position and states she needs nothing more at this time. She expresses agreement with plan to stay overnight and undergo surgery tomorrow. Awaiting follow up xray and admission.
--- NOTE | 2023-12-24 16:54 | W.PC.ACHO ---
Registration Status: REG ER Primary Language: Preferred Language: Slovenian ED Information & Data Chief Complaint Orthopedic 12/24/23 13:29 Triage Note pt was grabbing mail, 12/24/23 12:43 slipped on ice and landed on r foot, r ankle pain. pt crawled through snow to get to phone. no pain at this time, only discomfort. Medical / Surgical History (Updated 12/24/23 @ 16:06 by Dat Ivy MD) Pessary maintenance (08/05/17) Cystocele with uterine prolapse (06/30/11) Tobacco use Pelvic organ prolapse quantification stage 4 cystocele (Updated 01/06/22 @ 08:38 by Aaron Narvaez MD) History of bilateral salpingo-oophorectomy History of total vaginal hysterectomy (TVH) Tonsillectomy and adenoidectomy Endometrial Biopsy Biopsy of breast (~1999) Most Recent Vital Signs Temperature 37.0 C 12/24/23 12:43 Pulse 82 12/24/23 15:08 Respiratory Rate 14 12/24/23 15:08 Respiratory Effort Normal 12/24/23 12:46 Blood Pressure 155/85 H 12/24/23 12:47 Pulse Oximetry 97 12/24/23 15:08 Respiratory End-tidal CO2 39 12/24/23 15:08 Oxygen Delivery Method Room Air 12/24/23 15:08 Oxygen Flow Rate 0 12/24/23 15:08 Pain Level 2 12/24/23 15:08 Allergies No Known Allergies Allergy (Verified 12/24/23 15:40) IV IV Catheter Type [Right Saline Lock Antecubital] IV Catheter Gauge [Right 20 Antecubital] Diagnostics 12/24/23 Range/Units 14:35 WBC 12.31 H (4.4-10.8) 10^3/uL RBC 4.51 (3.93-5.22) 10^6/uL Hgb 13.3 (11.2-15.7) g/dL Hct 40.2 (36.0-46.0) % MCV 89 (80-95) fL MCH 29.5 (27.0-33.0) pg MCHC 33.1 (32.0-36.0) % RDW 13.2 (11.7-14.6) % Plt Count 364 (130-400) 10^3/uL MPV 9.5 (8.0-11.0) fL Immature Gran % 0.5 Neutrophils % 81.3 Lymphocytes % 12.4 Monocytes % 4.2 Eosinophils % 1.1 Basophils % 0.5 Nucleated RBC % 0.0 (0.0-0.3) % Absolute Neutrophils 10.01 H (1.2-6.7) 10^3/uL Absolute Lymphocytes 1.53 (1.2-3.4) 10^3/uL Absolute Monocytes 0.52 (0.1-0.8) 10^3/uL Absolute Eosinophils 0.14 (0.0-0.7) 10^3/uL Absolute Basophils 0.06 (0.0-0.2) 10^3/uL Sodium 133 L (136-145) mmol/L Potassium 4.2 (3.5-5.1) mmol/L Chloride 96 L (98-107) mmol/L Carbon Dioxide 25.8 (21.0-32.0) mmol/L Anion Gap 11.2 H (3-11) mmol/L BUN 20 H (7-18) mg/dL Creatinine 0.9 (0.55-1.02) mg/dL Est GFR (CKD-EPI 2020) 63.43 (mL/min/1.73m2) Glucose 190 H (74-106) mg/dL Calcium 9.2 (8.5-10.1) mg/dL Total Bilirubin 0.3 (0.2-1.0) mg/dL AST 17 (15-37) U/L ALT 21 (14-59) U/L Alkaline Phosphatase 136 H (46-116) U/L Total Protein 8.2 (6.4-8.2) g/dL Albumin 3.8 (3.4-5.0) g/dL Intake and Output - 24 Hour Total 12/24/23 12:36 thru 12/24/23 12:43 Weight 52 kg Falls Risk Assessment History of Falls Previous History 12/24/23 12:46 Fall Total Score 15 12/24/23 12:46 Level of Risk Standard/Low Risk 12/24/23 12:46 Problems (Updated 12/24/23 @ 16:06 by Dat Ivy MD) Fracture dislocation of right ankle (Acute 12/24/23) Notes 12/24/23 15:51 Nursing Notes by Nancy Cali Nursing Note: Pt expressed some anxiousness in anticipation of ankle reduction, however she did well during the procedure. This real estate underwriter remained at bedside to assist with support, such as holding pt's hand per pt request. Pt denies pain through entire procedure, and tolerates the reduction with 50mcg of fentanyl via IV. She is assisted back to a comfortable position and states she needs nothing more at this time. She expresses agreement with plan to stay overnight and undergo surgery tomorrow. Awaiting follow up xray and admission. Initialized on 12/24/23 15:51 - END OF NOTE v v v v v v v v v Sending and/or Receiving Nurses: Please use comment section below to note any information pertinent to the patient hand-off not included above. Information / Comments: Vital signs are stable. Pain under good control. NPO after midnight for surgery tomorrow Report received from:Soila Cali RN
[2023-12-24] MEDS: Naproxen 250 MG TAB PO (18:17)
[2023-12-24] MEDS: Normal Saline 1,000 ML 75 ML IV (19:05)
[2023-12-24] MEDS: Acetaminophen 500 MG TAB 1000 MG PO (19:18)
[2023-12-24] MEDS: Simvastatin 20 MG TAB PO (20:38)
[2023-12-24] MEDS: metFORMIN 500 MG TAB PO (20:38)
[2023-12-24] MEDS: Amitriptyline 25 MG TAB PO (21:01)
[2023-12-24] MEDS: Propranolol 20 MG TAB PO (21:01)
[2023-12-24] MEDS: MORPHine 4 MG/ML SYR IVP (22:31)
[2023-12-24] MEDS: Normal Saline Flush 10 ML SYR IVP (23:14)
[2023-12-25] VITALS (15 sets, daily range): BP systolic 95–138; BP diastolic 33–78; PULSE 70–94; RESP 13–22; TEMP 35.7–36.8; O2SAT 94–98; BMI 25.0
--- NOTE | 2023-12-25 06:28 | NUR.NOTE ---
portable CXR done as ordered.
--- NOTE | 2023-12-25 06:30 | DI.RAD_ITS ---
Exam(s) XR PORTABLE CHEST AP EXAM: XR PORTABLE CHEST AP CLINICAL HISTORY: PREOP. TECHNIQUE: 2D digital imaging was performed. COMPARISON: No exams were available for comparison FINDINGS: Single AP portable view. Heart size is upper normal. The mediastinum is not widened. Lungs are clear. No infiltrates nor obvious pleural effusions. IMPRESSION: No acute pulmonary findings on this single AP portable view of the chest. DATA REPOSITORY: RADIATION DOSE DELIVERED:
[2023-12-25 06:35] LABS: Anion Gap 11.8 mmol/L (3-11); BUN 17 mg/dL (7-18); CO2 24.2 mmol/L (21.0-32.0); CREATININE 0.8 mg/dL (0.55-1.02); Calcium 8.5 mg/dL (8.5-10.1); Chloride 97 mmol/L (98-107); Estimated GFR 73.06 (mL/min/1.73m2); Glucose 158 mg/dL (74-106); Potassium 4.3 mmol/L (3.5-5.1); Sodium 133 mmol/L (136-145)
[2023-12-25 06:54] LABS: Hemoglobin A1C 7.3 % (<5.7)
--- NOTE | 2023-12-25 07:00 | RT.EKG_ITS ---
APPROVED REPORT Exam: Resting ECG Reason for Exam: Preop Patient Location: I HR:73 bpm ECG Measurements Heart Rate 73 AXIS SD 206 P 49 QRSd 93 QRS 21 QT 404 T 48 QTc 446 Conclusion Sinus rhythm...normal P axis, V-rate 50- 99 Normal Electrocardiogram
--- NOTE | 2023-12-25 07:12 | ANES.PREOP_ITS ---
General Info Date of Service Date Performed: 12/25/23 Height: 4 ft 9 in Weight: 52.4 kg Body Mass Index (BMI): 25.0 Surgical Procedure: Operation Date: 12/25/23 10:55 Proposed Procedure Side Surgeon p Ankle ORIF Right Dat Ivy MD Meds Allergies and Home Medications Allergies Allergy/AdvReac Type Severity Reaction Status Date / Time No Known Allergies Allergy Verified 12/24/23 15:40 Home Medication Medication Instructions Recorded aspirin 81 mg tablet,delayed 81 mg PO DAILY 06/01/18 release (Adult Low Dose Aspirin) [id number]-min 1 tab PO DAILY 01/28/19 3,300 unit-5 mg-200mg-75 unit tablet ER (ICaps) cyanocobalamin (vitamin B-12) 1,000 mcg PO DAILY 07/23/23 1,000 mcg capsule folic acid 800 mcg tablet 0.8 mg PO DAILY 07/23/23 amitriptyline 25 mg tablet 25 mg PO HS #90 tab-caps 10/24/23 amlodipine 5 mg tablet 5 mg PO DAILY #90 tab-caps 10/24/23 lisinopril 20 mg tablet 20 mg PO DAILY #90 tab-caps 10/24/23 lisinopril 20 1 tab PO DAILY #90 tab-caps 10/24/23 mg-hydrochlorothiazide 12.5 mg tablet metformin 500 mg tablet 500 mg PO BID #180 tabs 10/24/23 propranolol 20 mg tablet 20 mg PO BID #180 tab-caps 10/24/23 simvastatin 20 mg tablet 20 mg PO HS #90 tabs 10/24/23 chlordiazepoxide HCl 5 mg capsule 5 mg PO HS #90 tabs 11/17/23 Current Visit Medications: Current Medications Generic Name Dose Route Start Last Admin Trade Name Freq PRN Reason Stop Dose Admin Acetaminophen 1,000 mg 12/24/23 17:11 12/24/23 19:18 Acetaminophen 500 Mg Tab PO 1,000 mg Q6H PRN PRN Administration Amitriptyline HCl 25 mg 12/24/23 20:00 12/24/23 21:01 Amitriptyline 25 Mg Tab PO 25 mg HS MATTHEW Administration Chlordiazepoxide HCl 5 mg 12/24/23 20:00 12/24/23 21:10 Chlordiazepoxide 5 Mg Cap PO Not Given HS MATTHEW Diphenhydramine HCl 25 mg 12/24/23 17:11 Diphenhydramine 25 Mg Cap PO Q6H PRN PRN insomnia, itchiness, or rash Docusate Sodium 100 mg 12/24/23 17:11 Docusate Sodium 100 Mg Cap PO BID PRN PRN Ondansetron HCl 4 mg/ Sodium 52 mls @ 200 mls/hr 12/24/23 17:11 Chloride IVPB Q6H PRN PRN Sodium Chloride 1,000 mls @ 75 mls/hr 12/25/23 00:01 12/24/23 21:11 Saline 1000ml Bag IV 75 mls/hr INFUSION MATTHEW Infusion Metformin HCl 500 mg 12/24/23 20:00 12/24/23 20:38 Metformin 500 Mg Tab PO 500 mg BID MATTHEW Administration Morphine Sulfate 2 - 4 mg 12/24/23 17:12 12/24/23 22:31 Morphine 4 Mg/Ml Syr IVP 2 mg Q2H PRN PRN Administration Naproxen 250 mg 12/24/23 17:11 12/24/23 18:17 Naproxen 250 Mg Tab PO 250 mg BID PRN PRN Administration for moderate to severe pain Propranolol HCl 20 mg 12/24/23 20:00 12/24/23 21:01 Propranolol 20 Mg Tab PO 20 mg BID MATTHEW Administration Simvastatin 20 mg 12/24/23 20:00 12/24/23 20:38 Simvastatin 20 Mg Tab PO 20 mg HS MATTHEW Administration Sodium Chloride 0 ml 12/24/23 19:56 12/24/23 23:14 Normal Saline Flush 10 Ml Syr IVP 20 ml PRN PRN Administration Tramadol HCl 50 mg 12/24/23 17:11 Tramadol 50 Mg Tab PO Q6H PRN PRN PFSH Active Problems Active Problems: Problem Status Onset Code Fracture dislocation of right ankle 12/24/23 S82.891A Closed right ankle fracture S82.891A Low vitamin B12 level E53.8 Peripheral neuropathy G62.9 Posterior subcapsular age-related cataract of left eye H25.042 Nuclear sclerotic cataract of left eye H25.12 Cortical cataract of left eye H26.9 Posterior subcapsular age-related cataract, right eye H25.041 Cortical cataract of right eye H26.9 Nuclear sclerotic cataract of right eye H25.11 Smoker F17.200 Neurodermatitis 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 Change to 64 mm donut pessary 06/21/18. Not well tolerated. Pt will stop all pessary use and [place] [facility] [place] Cystocele with uterine prolapse (06/30/11) Treated with LeFort colpocleisis, posterior [place] [facility] [place] Tobacco use In the pre-contemplative stage of cessation. Pelvic organ prolapse quantification stage 4 cystocele Long-standing Gellhorn use, 06/2018 changed with donut pessary use of insertion and removal. [place] [facility] consult: Patient recommended to have a colpocleisis. Surgical History Surgical History History of bilateral salpingo-oophorectomy 07/20/19 History of total vaginal hysterectomy (TVH) Patient also had a Vaginectomy 07/20/19 Tonsillectomy and adenoidectomy Endometrial Biopsy neg Biopsy of breast (~1999) Tobacco Smoking/Tobacco Use Status: Current every day Tobacco Type: cigarettes Smoking packs per day: 1 Alcohol Alcohol Intake: never Substance Use Substance use type: does not use Prental History History 2 4 Para Hx # Term Pregnancies 3 Multiple births Hx # Pregnancies Ectopic pregnancies AB induced Hx Number of Living Children AB spontaneous Vital Signs and Lab Results Vital Signs Most Recent Vital Signs in EMR: Most Recent Vital Signs Temp Pulse Resp BP Pulse Ox 35.7 C L 80 20 127/58 L 95 12/24/23 23:42 12/24/23 17:20 12/24/23 17:20 12/24/23 23:42 12/24/23 17:19 Lab Results 12/24/23 14:35 12/25/23 05:38 Blood Type / Crossmatch: 2 No Data to Display Complete Blood Count: 2 White Blood Count 12.31 10^3/uL (4.4-10.8) H 12/24/23 14:35 Red Blood Count 4.51 10^6/uL (3.93-5.22) 12/24/23 14:35 Hemoglobin 13.3 g/dL (11.2-15.7) 12/24/23 14:35 Hematocrit 40.2 % (36.0-46.0) 12/24/23 14:35 Platelet Count 364 10^3/uL (130-400) 12/24/23 14:35 Complete Metabolic Panel: 2 Sodium 133 mmol/L (136-145) L 12/25/23 05:38 Potassium 4.3 mmol/L (3.5-5.1) 12/25/23 05:38 Chloride 97 mmol/L (98-107) L 12/25/23 05:38 Carbon Dioxide 24.2 mmol/L (21.0-32.0) 12/25/23 05:38 BUN 17 mg/dL (7-18) 12/25/23 05:38 Creatinine 0.8 mg/dL (0.55-1.02) 12/25/23 05:38 Est GFR (CKD-EPI 2020) 73.06 (mL/min/1.73m2) 12/25/23 05:38 Calcium 8.5 mg/dL (8.5-10.1) 12/25/23 05:38 Albumin 3.8 g/dL (3.4-5.0) 12/24/23 14:35 Glucose 158 mg/dL (74-106) H 12/25/23 05:38 Hemoglobin A1c 7.3 % (<5.7) H 12/25/23 05:38 Liver Function Panel: 2 Alanine Aminotransferase (ALT/SGPT) 21 U/L (14-59) 12/24/23 14: 35 Aspartate Amino Transf (AST/SGOT) 17 U/L (15-37) 12/24/23 14:35 Coagulation Panel: 2 No Data to Display Cardiac Panel: 2 No Data to Display Arterial Blood Gas: 2 No Data to Display Venous Blood Gas: 2 No Data to Display Pancreas Panel: 2 No Data to Display Thyroid Panel: 2 No Data to Display Infectious Disease: 2 No Data to Display Blood Cultures: 2 No Data to Display Toxicology Panel: 2 No Data to Display Anesthesia Assessment and Plan Anesthesia History Personal History: No History of Anesthesia Complications Family History: No Family History of Anesthesia Complications Exercise Tolerance Exercise Tolerance: Metabolic Equivalents>4 Pertinent Negatives Pertinent Negatives: No Symptoms of GERD Cardiac & Pulmonary Exam Cardiac Exam: Normal S1/S2 Heart Sounds Pulmonary Exam: Clear Bilateral Breath Sounds Implantable Cardiac Device Does patient have a Pacemaker or an ICD?: No Airway Exam Known Difficult Airway: No Mallampati Class: 3 Mouth Opening: Narrow (< 3cm) Thyromental Distance: Less than 3 cm Neck Range of Motion: Full ROM Neck Circumference: Normal Teeth Condition: Edentulous ASA Classification ASA Score: ASA 3 Emergency Case?: No NPO Status NPO Status: NPO Clears >2 hours, Solids >8 hours Anesthesia Plan Resuscitation Status: Full Code Anesthesia Technique: General Anesthesia Airway Planned: Endotracheal Tube Monitors Used: Standard Monitors
--- NOTE | 2023-12-25 07:20 | ROE_ITS ---
Date of service: 12/25/23 Time of Service: 10:30 Operative Note Operative Note DATE OF PROCEDURE: 12/25/23 PRE-OP DIAGNOSIS: Right trimalleolar ankle fracture dislocation POST-OP DIAGNOSIS: same PROCEDURE: Right trimalleolar ankle fracture ORIF, medial, lateral, and posterior malleoli, CPT #[id number] SURGEON: Dat Ivy VAN HELPER: Nellie Golden ANESTHESIA TYPE: Local By Surgeon and General LMA/ETT Refer to Anesthesia Record ESTIMATED BLOOD LOSS: 10 TOURNIQUET TIME: 0 COMPLICATIONS: None Patient was transported to: PACU Patient's condition: stable Implants: Synthes 1/3 tubular T plate posterior malleolus with 3x proximal bicortical shaft screws and separate distal 4.0 mm partially-threaded cancellous screw lagg ing the fracture; 6-hole 1/3 tubular plate distal fibula with 2 x 4.0 mm cancellous screws distally to fracture and 3 x 2.5 mm bicortical cortex screws proximal to fracture; Single 4.0mm partially-threaded cancellous screw medial malleolus Indications: Please see complete medical record for details. Findings: Extremely poor bone quality comminuted displaced trimalleolar ankle fracture Procedure Description: In the operating room, general anesthesia was induced. The patient was positioned prone on the operating room table. All bony prominences were well- padded. Preoperative antibiotics were administered. The right ankle was prepped and draped in the usual sterile fashion. The correct patient, procedure, and side of the procedure were all verified prior to incision. The posterior lateral approach to the ankle was used with appropriate distal extension for the very far distal fibula fracture and proximal to accommodate posterior malleolus plate and. The interval between the peroneal tendons and FHL was opened and the FHL swept medially off the posterior tibia and Carefully retracted. The fracture was readily displaced posteriorly identified and comminuted. The fracture was manipulated into place and secured with a T plate antiglide manner filled with bicortical cortex screws proximal to fracture. The plate well covered the fragment medial laterally, but the fragment was so distal and small and comminuted that the most distal screw was placed distal to the fracture at a low level above the ankle joint lacking the main fracture fragment from posterior to anterior. Next, the peroneal tendons were retracted off the posterior fibula, given the far posterior fibular fracture and poor bone quality posterior plating was chosen to optimize length of screws and fixation as well as add additional restraint to posterior displacement. The one third tubular plate was centered at the fracture site, secured proximally with bicortical cortex screws and distally with obliquely oriented bicortical cancellous screws use due to the profoundly poor bone quality. Lastly, the medial malleolus was scrutinized and thought to possibly have a mildly displaced fracture on initial and current imaging, which may be connected to the posterior malleolus fracture but it was very difficult to tell given the poor bone poorly showing up on x-rays. The tip of the medial malleolus was localized fluoroscopically, a small stab incision made, and soft tissue protector drill used to drill for a single 4.0 mm partially threaded cancellous screw. Ankle joint and hardware inspected with appropriate reduction and hardware placement. It was very difficult again to visualize the fracture lines, bone, and precise details. Posterior stress did not cause any displacement at all posteriorly. External rotation stress did not cause any mortise displacement. The wounds were copiously irrigated with normal saline. Hemostasis was appropriate. Subcutaneous tissue was closed using 2-0 Monocryl buried interrupted. There is very poor and limited soft tissue. Skin closed and 3-0 nylon horizontal mattress. Xeroform applied over incisions followed by 4 x 4 gauze and well-padded soft roll. The extremities placed into a short leg AO splint with the foot in neutral rotation and gentle plantarflexion to minimize posterior displacement forces and limit weightbearing. The footplate was well reinforced given the high likelihood of ambulation. The patient awoke from anesthesia without complication and was transferred to the recovery room in a stable condition.
--- NOTE | 2023-12-25 08:28 | DI.VRAD_ITS ---
PROCEDURE INFORMATION: Exam: XR Chest Exam date and time: 12/25/2023 6:22 AM Age: 83 years old Clinical indication: Screening exam; Pre-operative exam; Other: Unknown; Additional info: Preop TECHNIQUE: Imaging protocol: Radiologic exam of the chest. Views: 1 view. COMPARISON: No relevant prior studies available. FINDINGS: Lungs: Lungs are clear. Pleural spaces: No significant pleural fluid. No pneumothorax detected. Heart/Mediastinum: Heart size upper limits of normal, accentuated by portable technique. No pulmonary vascular congestion. Bones/joints: No obvious acute abnormality. IMPRESSION: No acute cardiopulmonary abnormality detected on AP portable chest radiograph. Dictated and Authenticated by: Jorgito Mayes MD. Ordering:ALO Daugherty MD
[2023-12-25] MEDS: ceFAZolin 2 GM/50 ML BAG 100 GM (10:24)
[2023-12-25] MEDS: Tranexamic Acid 1,000 MG/10 ML VIAL 1000 MG (10:24)
[2023-12-25] MEDS: Normal Saline 100 ML 600 ML (10:24)
--- NOTE | 2023-12-25 10:41 | W.ANESNERVE ---
Nerve Block Single Injection Procedure Date and Time Date Performed: 12/25/23 Procedure Start: 09:12 Location Where Procedure Performed Procedure Location: PACU Reason Performed: Postoperative Analgesia Requesting Provider: Dat Ivy Timeout Performed Timeout Performed: Yes Monitoring Used ECG, Blood Pressure, SpO2 and See EMR for corresponding vital signs Sterility Sterility: Hand Hygiene, Surgical Cap, Surgical Mask, Sterile Gloves, Eye Protection and Chlorhexidine Sedation Given During Procedure Sedation Given (Indicate Dose Given): Versed IV Dose:: 1mg IVP Patient Mental Status Patient Mental Status: Sedate with meaningful communication Nerve Block 1st Nerve Block: Laterality: Right Block Type: Adductor Canal Ultrasound Image Saved?: Yes Needle / Catheter Used: 100mm SonoPlex II Local Anesthetic Bolus (Indicate Dose Given): Lidocaine used for local infiltration of skin and Ropivacaine0.375% Dose:: 0.35%/20cc (70mg) Additives (Indicate Dose Given): Epinephrine to make 1:200,000 (5mcg/ml) Dose:: 100mcg/20cc (1:200,000) and Decadron Dose:: 5mg PF Ultrasound: Sterile probe cover and gel used Nerve Stimulator: Not Used Paresthesia: None Procedure Tolerated: No Complications and Patient tolerated well Procedure Outcome: Successful Performed By: Ty Navarro 2nd Nerve Block: Laterality: Right Block Type: Popliteal Sciatic Ultrasound Image Saved?: Yes Needle / Catheter Used: 100mm SonoPlex II Local Anesthetic Bolus (Indicate Dose Given): Lidocaine used for local infiltration of skin and Ropivacaine0.375% Dose:: 0.35%/20cc (70mg) Additives (Indicate Dose Given): Epinephrine to make 1:200,000 (5mcg/ml) Dose:: 100mcg/20cc (1:200,000) and Decadron Dose:: 5mg PF Ultrasound: Sterile probe cover and gel used Nerve Stimulator: Not Used Paresthesia: None Procedure Tolerated: No Complications and Patient tolerated well Procedure Outcome: Successful Performed By: Ty Navarro
--- NOTE | 2023-12-25 11:55 | DI.RAD_ITS ---
Exam(s) XR ANKLE RT 2V EXAM: XR ANKLE RT 2V CLINICAL HISTORY: right ankle bimalleolar fracture dislocation. TECHNIQUE: 2D digital imaging was performed. COMPARISON: CR XR ANKLE RT COMPLETE from 12/24/2023 FINDINGS: Fluoroscopy provided during close reduction of right ankle fracture. See procedure report for detail s. Total fluoroscopy time 44.9 seconds IMPRESSION: Radiation exposure index/cumulative dose: Ka,r= 0.9933 mGy DATA REPOSITORY: RADIATION DOSE DELIVERED:
--- NOTE | 2023-12-25 12:01 | PDOC.CMIN ---
Date of service: 12/25/23 Time of Service: 12:01 Care Management Initial Assmt Initial Assessment REASON FOR HOSPITALIZATION:: right ankle fracture PREVIOUS FUNCTIONAL STATUS/SOCIAL/FAMILY SUPPORTS:: Jocelyn lives alone in a mobile home in [place]. ADVANCE DIRECTIVES:: none on file Has patient been provided with info about the portal/API?: Yes Did the patient sign up for the portal?: No CODE STATUS:: Full Code INSURANCE COVERAGE / FINANCIAL ISSUES:: Medicare [place] National Medicare supplement PRIMARY CARE PHYSICIAN:: Miguel Lara POTENTIAL DISCHARGE NEEDS:: follow up with Orthopedics PATIENT/FAMILY EDUCATION NEEDS:: Review of discharge instructions, activity, limitations, follow up plan, discuss Ask Me Three TRANSPORTATION:: via private vehicle with family PLAN:: Anticipate Jocelyn will be discharged home with no new services. She will follow up with her community providers and plan of care and transport with friend or family member. PFSH All Active Problems (Updated 12/24/23 @ 16:06 by Dat Ivy MD) Fracture dislocation of right ankle (Acute 12/24/23) Closed right ankle fracture (Acute) Low vitamin B12 level (Acute) Peripheral neuropathy (Acute) Smoker (Acute) Neurodermatitis (Acute) eczema Hyperlipidemia (Acute) Essential hypertension (Acute 08/25/13) Diabetes mellitus (Chronic 03/16/12) Arthritis (Acute) Anxiety (Acute) H/O 30 yr. benzodiazepine use Medical History Pessary maintenance (08/05/17) Long-standing use of 64 mm longstem Gelhorn. Change to 64 mm donut pessary 06/21/18. Not well tolerated. Pt will stop all pessary use and be eval for surgical Rx at [facility] [place]. Cystocele with uterine prolapse (06/30/11) Treated with LeFort colpocleisis, posterior repair at [facility] [place] 2018 Tobacco use In the pre-contemplative stage of cessation. Pelvic organ prolapse quantification stage 4 cystocele Long-standing Gellhorn use, 06/2018 changed with donut pessary use of insertion and removal. For 2019 [facility] [place] urogynecology consult: Patient recommended to have a colpocleisis. Surgical History History of bilateral salpingo-oophorectomy 07/20/19 History of total vaginal hysterectomy (TVH) Patient also had a Vaginectomy 07/20/19 Tonsillectomy and adenoidectomy Endometrial Biopsy neg Biopsy of breast (~1999) Family History Father Personal history of malignant neoplasm COLON FAMILY HISTORY Heart disease Social History Smoking/Tobacco Use Status: Current every day Tobacco Type: cigarettes Smoking packs per day: 1 Smoking cigarettes per day: 20.0 Smoking risk assessment performed?: Yes Alcohol Intake: never Substance use type: does not use Household members: none Housing: other Sexually active: No Tete/Mandaen: restoration Seatbelt use: always Do you feel safe at home: Yes Do you feel safe in your relationship?: Yes Additional Social history: lives alone-will have somebody to care for her post-op Female Reproductive History Menstrual Menopause type: natural History History 4 Para Hx # Term Pregnancies 3 Multiple births Hx # Pregnancies Ectopic pregnancies AB induced Hx Number of Living Children AB spontaneous SDOH(Care Management) Screening Will the Patient Participate in the Screening?: Yes Do you worry about having a steady place to live?: no In the past 12 months, have you had to go without electric, gas, oil or water in your home?: no Have you or anyone in your house had to go without enough food to eat?: no Has lack of transportation kept you from medical appointments or from doing things needed for daily living?: no Has anyone in your support network made you feel unsafe for any reason?: no
--- NOTE | 2023-12-25 12:08 | DSE_ITS ---
DS: Diagnosis Discharge Diagnosis (1) Fracture dislocation of right ankle: Status: Acute Discharge Plan Disposition Condition: Stable Discharge Details Reason For Visit: Right ankle fx/dx Admit Date/Time: 12/24/23 16:21 Admit Provider: Dat Ivy Attending Provider: Dat Ivy Primary Care Provider: Miguel Lara Home Meds and New Rx's Prescriptions: Continued aspirin [Adult Low Dose Aspirin] 81 mg tablet,delayed release (DR/EC) 81 mg PO DAILY ICaps [id number] mgwy-xn-bm-unit tablet extended release 1 tab PO DAILY cyanocobalamin (vitamin B-12) 1,000 mcg capsule 1,000 mcg PO DAILY folic acid 800 mcg tablet 0.8 mg PO DAILY amitriptyline 25 mg tablet 25 mg PO HS Qty: 90 3RF amlodipine 5 mg tablet 5 mg PO DAILY Qty: 90 1RF lisinopril 20 mg tablet 20 mg PO DAILY Qty: 90 4RF lisinopril-hydrochlorothiazide 20-12.5 mg tablet 1 tab PO DAILY Qty: 90 4RF metformin 500 mg tablet 500 mg PO BID Qty: 180 1RF propranolol 20 mg tablet 20 mg PO BID Qty: 180 3RF simvastatin 20 mg tablet 20 mg PO HS Qty: 90 4RF chlordiazepoxide HCl 5 mg capsule 5 mg PO HS Qty: 90 1RF Discharge Instructions Additional Instructions: Surgery 12/25/23 Right trimalleolar ankle ORIF Activity: Partial weightbearing (less than 50%) with a walker. Strict elevation to minimize swelling. Encourage circulation, wiggle toes. Prescriptions: TBD Aspirin 81 mg take 1 daily to prevent a blood clot for 2 weeks Naproxen 250 mg take 1 every 12 hours with a meal as needed for moderate pain Tramadol 50 mg take 1 every 8 hours as needed for severe pain You may use hujy-gjp-phhajya Tylenol (acetaminophen) as needed for mild pain. These pain medications may be taken all at once or in different combinations as needed. Also, recommend Colace (docusate) as a stool softener as surgery and pain medicine cause constipation. You may try knpd-gct-vkqmzyt diphenhydramine (Benadryl) 25-50 mg nightly as a sleep aid Dressings: Leave splint and dressing in place until follow-up. Keep clean and dry at all times. Follow-up: 10-[address] Ivy Please call the office during business hours with any questions or concerns. DS: Summary Quality:SDOH Health Related Social Needs: No Data to Display DS: Data Vitals/I&O Vitals and I&O: Vital Signs Temperature 97.9 F 12/25/23 08:48 Temperature Source Tympanic 12/25/23 08:48 Pulse 70 12/25/23 08:48 Pulse Rhythm Regular 12/25/23 07:52 Pulse 91 H 12/24/23 15:47 Respiratory Rate 16 12/25/23 08:48 Respiratory Effort Normal, Non-Labored 12/25/23 07:52 Respiratory Depth Normal 12/25/23 07:52 Respiratory Pattern Normal 12/25/23 07:52 Blood Pressure 132/44 L 12/25/23 08:48 Blood Pressure Mean 73 12/25/23 08:48 Blood Pressure Position Left Lateral 12/25/23 08:48 Pulse Oximetry 96 12/25/23 08:48 Respiratory End-tidal CO2 33 12/24/23 15:37 Oxygen Delivery Method Room Air 12/25/23 08:48 Oxygen Flow Rate 0 12/25/23 08:48 Pain Level 1 12/25/23 08:48 Comment pt tolerated procedure well 12/25/23 08:48 Intake & Output 12/24/23 12/25/23 12/25/23 23:59 11:59 23:59 Intake Total 157.5 / 157.5 157.5 / 157.5 Output Total 325 / 325 400 / 400 Balance -167.5 / -167.5 -242.5 / -242.5 Weight 121 lb 11.123 oz 115 lb 8.356 oz Intake: IV 157.5 / 157.5 157.5 / 157.5 Output: Urine 325 / 325 400 / 400 Other: Urine Color Yellow Yellow Urine Appearance Clear Cloudy Urine Odor None Voiding Methods Bedside Commode Bedside Commode Data Completed and Pending Labs on day of discharge: Labs from last 24 hours 12/25/23 12/24/23 05:38 14:35 WBC 12.31 H RBC 4.51 Hgb 13.3 Hct 40.2 MCV 89 MCH 29.5 MCHC 33.1 RDW 13.2 Plt Count 364 MPV 9.5 Immature Gran % 0.5 Neutrophils % 81.3 Lymphocytes % 12.4 Monocytes % 4.2 Eosinophils % 1.1 Basophils % 0.5 Nucleated RBC % 0.0 Absolute Neutrophils 10.01 H Absolute Lymphocytes 1.53 Absolute Monocytes 0.52 Absolute Eosinophils 0.14 Absolute Basophils 0.06 Sodium 133 L 133 L Potassium 4.3 4.2 Chloride 97 L 96 L Carbon Dioxide 24.2 25.8 Anion Gap 11.8 H 11.2 H BUN 17 20 H Creatinine 0.8 0.9 Est GFR (CKD-EPI 2020) 73.06 63.43 Glucose 158 H 190 H Hemoglobin A1c 7.3 H Calcium 8.5 9.2 Total Bilirubin 0.3 AST 17 ALT 21 Alkaline Phosphatase 136 H Total Protein 8.2 Albumin 3.8 PFSH All Active Problems Fracture dislocation of right ankle (Acute 12/24/23) Closed right ankle fracture (Acute) Low vitamin B12 level (Acute) Peripheral neuropathy (Acute) Smoker (Acute) Neurodermatitis (Acute) eczema Hyperlipidemia (Acute) Essential hypertension (Acute 08/25/13) Diabetes mellitus (Chronic 03/16/12) Arthritis (Acute) Anxiety (Acute) H/O 30 yr. benzodiazepine use Medical History Pessary maintenance (08/05/17) Long-standing use of 64 mm longstem Gelhorn. Change to 64 mm donut pessary 06/21/18. Not well tolerated. Pt will stop all pessary use and be eval for surgical [place] [facility] [place] Cystocele with uterine prolapse (06/30/11) Treated with LeFort colpocleisis, posterior repair at [facility] [place] Tobacco use In the pre-contemplative stage of cessation. Pelvic organ prolapse quantification stage 4 cystocele Long-standing Gellhorn use, 06/2018 changed with donut pessary use of insertion and removal. For 2019 [facility] [place] consult: Patient recommended to have a colpocleisis. Surgical History History of bilateral salpingo-oophorectomy 07/20/19 History of total vaginal hysterectomy (TVH) Patient also had a Vaginectomy 07/20/19 Tonsillectomy and adenoidectomy Endometrial Biopsy neg Biopsy of breast (~1999) Family History Father Personal history of malignant neoplasm COLON FAMILY HISTORY Heart disease Social History Smoking/Tobacco Use Status: Current every day Tobacco Type: cigarettes Smoking packs per day: 1 Smoking cigarettes per day: 20.0 Smoking risk assessment performed?: Yes Alcohol Intake: never Substance use type: does not use Household members: none Housing: other Sexually active: No Tete/Christian: protestant Seatbelt use: always Do you feel safe at home: Yes Do you feel safe in your relationship?: Yes Additional Social history: lives alone-will have somebody to care for her post- op History History 4 Para Hx # Term Pregnancies 3 Multiple births Hx # Pregnancies Ectopic pregnancies AB induced Hx Number of Living Children AB spontaneous
--- NOTE | 2023-12-25 14:04 | PDOC.CMPRO ---
Date of service: 12/25/23 Time of Service: 14:04 Care Management Progress Note Progress Note Text Progress Note Text: Jocelyn was admitted with a fractured ankle on 12/24/23. She went to surgery this morning, recovered and did well. She will be discharged home with no new services and follow up with orthopedic services in 10-14 days. Jocelyn was discharged before CM was able to meet with her. SDOH(Care Management) Screening Will the Patient Participate in the Screening?: Yes Do you worry about having a steady place to live?: no In the past 12 months, have you had to go without electric, gas, oil or water in your home?: no Have you or anyone in your house had to go without enough food to eat?: no Has lack of transportation kept you from medical appointments or from doing things needed for daily living?: no Has anyone in your support network made you feel unsafe for any reason?: no
--- NOTE | 2023-12-25 14:21 | W.ANESPOSTOP ---
Postoperative Evaluation Date, Time and Location Date Performed: 12/25/23 Time Performed: 14:21 Patient Location: Med/Surg Vital Signs Most Recent Imported Vital Signs: Most Recent Vital Signs Temp Pulse Resp BP Pulse Ox 35.7 C L 85 16 138/57 L 97 12/25/23 14:00 12/25/23 14:00 12/25/23 14:00 12/25/23 14:00 12/25/23 14:00 Pain Score Most Recent Pain Score: Most Recent Pain Score Pain Level [Right Ankle] 0 12/24/23 13:00 Pain Level 2 12/25/23 14:00 Assessment Mental Status: Awake (Alert & Oriented to Patient Baseline) Airway and Respiratory Function: Patent airway with normal (patient baseline) respiratory exam Cardiovascular Function: Hemodynamically Stable Hydration Status: Adequately Hydrated Nausea & Vomiting: No Nausea or Vomiting Pain: Pt. Denies Any Pain Peripheral Nerve Block: Regional nerve block not resolved at time of post operative discharge
--- NOTE | 2023-12-25 14:25 | PT.INIE ---
PT Notes Visit Reasons: Right ankle fx/dx Physical Therapy Inpatient Initial Evaluation Date: 12/25/2023 Referring Doctor: Dat Ivy MD PT Orders: PT CONSULT: S/P Ortho Surgery. Partial WB RLE (less than 50%) Precautions: Fall. Standard. PWB (less than 50% on the r LE). Patient Profile/Admitting Diagnosis: Patient is an 83-year-old female who sustained a trimalleolar fracture on the R side from a fall and is S/P ORIF on postoperative day 0. PMHX: All Active Problems (Updated 12/24/23 @ 16:06 by Dat Ivy MD) Fracture dislocation of right ankle (Acute 12/24/23) Closed right ankle fracture (Acute) Low vitamin B12 level (Acute) Peripheral neuropathy (Acute) Smoker (Acute) Neurodermatitis (Acute) eczema Hyperlipidemia (Acute) Essential hypertension (Acute 08/25/13) Diabetes mellitus (Chronic 03/16/12) Arthritis (Acute) Anxiety (Acute) H/O 30 yr. benzodiazepine use Medical History Pessary maintenance (08/05/17) Long-standing use of 64 mm longstem Gelhorn. Change to 64 mm donut pessary 06/21/18. Not well tolerated. Pt will stop all pessary use and be eval for surgical Rx at [facility] [place]. Cystocele with uterine prolapse (06/30/11) Treated with LeFort colpocleisis, posterior repair at [facility] [place] 2018 Tobacco use In the pre-contemplative stage of cessation. Pelvic organ prolapse quantification stage 4 cystocele Long-standing Gellhorn use, 06/2018 changed with donut pessary use of insertion and removal. For 2019 [facility] [place]rogynecology consult: Patient recommended to have a colpocleisis. Surgical History History of bilateral salpingo-oophorectomy 07/20/19 History of total vaginal hysterectomy (TVH) Patient also had a Vaginectomy 07/20/19 Tonsillectomy and adenoidectomy Endometrial Biopsy neg Biopsy of breast (~1999) Social History/Home Situation: Live alone in a mobile home with three steps to enter without rails. She has limited family support daughter and grandromaine works during the day. She has 2 steps down to access her living room. Equipment Owned/DME: None Subjective: I do not feel safe going home today, I do not feel stable and I do not want to fall again. No report of pain in the R leg and foot. Objective: General Observation: Resting in bed. BETTIE wraps over short leg AO splint on the R. Mental Status: Alert and oriented as to person, place, time, and purpose. Able to pay attention, focus, and respond appropriately. Pain: None Vital Signs: Closely monitored by nursing staff, WNL ROM: Right Lower Extremity: Hip flexion WFL. Hip abduction WFL. Knee flexion WFL. Ankle dorsiflexion NT. Ankle plantarflexion NT. Left Lower Extremity: Hip flexion WFL. Hip abduction WFL. Knee flexion WFL. Ankle dorsiflexion WFL. Ankle plantarflexion WFL. Strength: Right Lower Extremity: Hip flexors 4/5. Hip abductors 4/5. Knee flexors 4/5. Knee extensors 4/5. Ankle dorsiflexors NT. Ankle plantarflexors NT. Left Lower Extremity: Hip flexors 4/5. Hip abductors 4/5. Knee flexors 4/5. Knee extensors 4/5. Ankle dorsiflexors 4/5. Ankle plantarflexors 4/5. Bed Mobility/Transfers: Moderate cueing provided for use of B hands as needed for support, movement sequence, AD management, and posture to reduce fall risk and minimize pain report Rolling minimal assist Supine to sit minimal assist Sit to stand moderate assist Stand to sit moderate assist Bed to bedside commode moderate assist with FWW Bedside commode to bed moderate assist with FWW Bed to reclining chair with moderate assist with FWW Gait: Only tolerated 4-5 small asymmetrical steps with less than 50% weight bearing on the R using FWW, moderate assist by PT. Verbal, visual and tactile cueing provided to advance R foot after gliding walker forward and ensuring weight is distributed to B UE as she moved her L LE forward. Facilitated safe advancement of R LE in compliance of WB precaution. Balance: Static Sitting: Normal Dynamic Sitting: Normal Static Standing: Fair Dynamic Standing: Fair Special Tests: Mobility Limitations Standardized Measure [facility] 6 clicks Basic Mobility Inpatient Short Form: Raw Score: 13 CMS Score: 65% deficit Informed Consent/Education: Patient was instructed in purpose of PT consult and plan of care. Agreeable to proceed with established PT POC to achieve personal goals. ASSESSMENT: Anxious about falling again, expressed concerns about her safety at home. Needed physical assistance as well as verbal, tactile and visual cueing to safely perform transfers and short steps from commode to bedside recliner. Patient was provided with properly fitting youth-sized walker to for optimal support and stability. Patient presents with clinical signs and symptoms consistent with current/admitting diagnoses that have resulted to mobility limitations, gait instability, generalized weakness, and overall ADL decline as demonstrated by the following impairment level findings: 1. Decreased strength to R leg and ankle major muscle groups 2. Impaired sitting/standing balance 3. Impaired activity tolerance 4. Limitation of joint range of motion in R ankle due to post op status 5. Less than 50% WB on the R LE per orthopod Impairments are contributing to the following functional limitations: 1. Decline in bed mobility skills 2. Decline in transfer skills 3. Difficulty with ambulation without assistive device and physical assistance 4. Increased completion time for mobility ADL performance 5. Increased risk for falls 6. Difficulty with managing steps alone safely Patient is assessed as a 64884 moderate complexity based on the following: History: 83-year-old male with past medical history as indicated above Examination: Demonstrable impairment in strength, balance, and mobility level with underlying impairments and functional limitations as exhibited above as well as deficit score of 65% utilizing the [facility] Mobility Inpatient Short Form Presentation: Evolving Decision Makin moderate complexity Goals: Goals X1 week 1. Supine-Sit independent 2. Sit-Supine independent 3. Sit-Stand independent 4. Stand-Sit independent with FWW 5. Bed-Chair independent with FWW 6. Chair-Bed independent with FWW 7. Independent gait on level surface with use of FWW for at least 150 feet without report of pain nor dyspnea 8. Independent stair negotiation while holding onto no rails for at least 3 steps without report of pain nor dyspnea 9. Independent with home exercise program 10. Good static and dynamic standing balance/tolerance Plan of Care/Treatment Plan: 1-2x/day, 7 days/week x 1 week. Plan of care has been reviewed with the ASSISTANT HALL DIRECTOR providing the service under Physical Therapy direction. Initiate Physical Therapy intervention for pain management as needed, strengthening, bed mobility, transfers, gait, stairs, balance training, and use of assistive device. DISCHARGE RECOMMENDATIONS: [] Home with no services [] [X] Home with services. Patient will benefit from home health PT services in order to progress mobility level using FWW, assess home safety, identify additional equipment needs, and establish a functional maintenance program that will increase ability of patient to remain at home. [] Home with outpatient PT [] [] SNF for continued rehabilitation [] [] [facility] [] [] SNF versus LTC based on ability to participate and progress [] TREATMENT CODE/TIME: 99307 x 20 minutes for 1 unit, 22978 x 15 minutes for 1 unit (14:25-15:00). Thank you for the opportunity to participate in the care of this patient. Digna Lozano PT, DPT, CLT [facility] [place], [place]
--- NOTE | 2023-12-25 15:51 | PGE_ITS ---
Date of Service Date of service: 12/25/23 Time of Service: 15:51 Assessment and Plan Assessment and plan (1) Fracture dislocation of right ankle: Status: Acute Assessment and plan: 83 year old female post op day #0 status post Right trimalleolar ankle ORIF Patient doing well after ankle surgery. Will need hospitalist management of chronic medical problems and continued observation for physical therapy rehabilitation. Complete 24 hours antibiotics, left lower extremity SCD and start chemical DVT prophylaxis tomorrow morning: Lovenox (or equivalent) while inpatient and may transition to aspirin as outpatient depending on level of mobility. Partial weightbearing (less than 50%) with walker. Strict elevation to minimize swelling. Encourage circulation, wiggle toes. Discussed with nursing staff and hospitalist team Subjective Subjective Interval history since last seen: Patient reports that she is not having any discomfort. She reports that she transferred from the bed to chair but has not tried ambulating yet because her arms feel weak. She is looking forward to going home but is not sure if she is quite ready yet because she doesn't have her strength back. Exam Narrative Exam Narrative: Patient resting comfortably in chair, very pleasant but somewhat confused asking when they will be bringing breakfast. Right leg resting on a pillow. Splint is clean and intact. Wiggles toes. Demonstrates active knee motion. No sensation in the toes secondary to nerve block. Brisk capillary refill. Objective Last Vital Signs Temp 97.3 F L 12/25/23 15:38 Pulse 79 12/25/23 15:38 Resp 18 12/25/23 15:38 BP 129/59 L 12/25/23 15:38 Pulse Ox 95 12/25/23 15:38 Laboratory Results - last 24 hr 12/25/23 05:38 Sodium 133 L Potassium 4.3 Chloride 97 L Carbon Dioxide 24.2 Anion Gap 11.8 H BUN 17 Creatinine 0.8 Est GFR (CKD-EPI 2020) 73.06 Glucose 158 H Hemoglobin A1c 7.3 H Calcium 8.5 Time Spent with Patient Time Spent with Patient: <25 minutes Time was spent: preparing to see the patient(eg.review tests), referring, communicating with other health director long term care, counseling the patient and care coordination
[2023-12-25] MEDS: metFORMIN 500 MG TAB PO (16:29)
--- NOTE | 2023-12-25 16:33 | PDOC.CMIN ---
Date of service: 12/25/23 Time of Service: 16:33 Care Management Initial Assmt Initial Assessment REASON FOR HOSPITALIZATION:: fractured ankle PREVIOUS FUNCTIONAL STATUS/SOCIAL/FAMILY SUPPORTS:: Jocelyn lives alone in a mobile home in [facility]. She has Two children; her son lives in [facility] and her daughter lives in [facility]. Jocelyn is independent at baseline and does not receive any community services. CURRENT FUNCTIONAL STATUS:: Jocelyn was sitting up in a chair when CM met with her. She fractured her ankle and went to surgery this morning. She had discharge orders entered and was moved from ICU (border) to Med-Surg but did not discharge home. She informed CM that she does not feel quite ready. She is still a little weak and lives alone. Her daughter and granddaughter are coming tomorrow and will transport her home and stay with her until she feels safe to be independent. ADVANCE DIRECTIVES:: none on file Has patient been provided with info about the portal/API?: Yes Did the patient sign up for the portal?: No CODE STATUS:: Full Code INSURANCE COVERAGE / FINANCIAL ISSUES:: Medicare [employer] CURRENT HOME/COMMUNITY SERVICES/EQUIPMENT:: none PRIMARY CARE PHYSICIAN:: Miguel Lara POTENTIAL DISCHARGE NEEDS:: follow up with Orthopedics PATIENT/FAMILY EDUCATION NEEDS:: Review of discharge instructions, activity, limitations, follow up plan, discuss Ask Me Three TRANSPORTATION:: via private vehicle with daughter and granddaughter PLAN:: Jocelyn will be discharged home with new home health services for PT. She will follow up with Orthopedics and her PCPP and plan of care and transport with family. CM will follow and continue to assess for discharge needs. PFSH All Active Problems Fracture dislocation of right ankle (Acute 12/24/23) Closed right ankle fracture (Acute) Low vitamin B12 level (Acute) Peripheral neuropathy (Acute) Smoker (Acute) Neurodermatitis (Acute) eczema Hyperlipidemia (Acute) Essential hypertension (Acute 08/25/13) Diabetes mellitus (Chronic 03/16/12) Arthritis (Acute) Anxiety (Acute) H/O 30 yr. benzodiazepine use Medical History Pessary maintenance (08/05/17) Long-standing use of 64 mm longstem Gelhorn. Change to 64 mm donut pessary 06/21/18. Not well tolerated. Pt will stop all pessary use and be eval for surgical Rx at [facility] [place]. Cystocele with uterine prolapse (06/30/11) Treated with LeFort colpocleisis, posterior repair at [facility] [place] 2019 Tobacco use In the pre-contemplative stage of cessation. Pelvic organ prolapse quantification stage 4 cystocele Long-standing Gellhorn use, 06/2018 changed with donut pessary use of insertion and removal. For 2019 [facility] [place] urogynecology consult: Patient recommended to have a colpocleisis. Surgical History History of bilateral salpingo-oophorectomy 07/20/19 History of total vaginal hysterectomy (TVH) Patient also had a Vaginectomy 07/20/19 Tonsillectomy and adenoidectomy Endometrial Biopsy neg Biopsy of breast (~2000) Family History Father Personal history of malignant neoplasm COLON FAMILY HISTORY Heart disease Social History Smoking/Tobacco Use Status: Current every day Tobacco Type: cigarettes Smoking packs per day: 1 Smoking cigarettes per day: 20.0 Smoking risk assessment performed?: Yes Alcohol Intake: never Substance use type: does not use Household members: none Housing: other Sexually active: No Tete/Congregation: zoroastrian Seatbelt use: always Do you feel safe at home: Yes Do you feel safe in your relationship?: Yes Additional Social history: lives alone-will have somebody to care for her post-op Female Reproductive History Menstrual Menopause type: natural History History 4 Para Hx # Term Pregnancies 3 Multiple births Hx # Pregnancies Ectopic pregnancies AB induced Hx Number of Living Children AB spontaneous SDOH(Care Management) Screening Will the Patient Participate in the Screening?: Yes Do you worry about having a steady place to live?: no In the past 12 months, have you had to go without electric, gas, oil or water in your home?: no Have you or anyone in your house had to go without enough food to eat?: no Has lack of transportation kept you from medical appointments or from doing things needed for daily living?: no Has anyone in your support network made you feel unsafe for any reason?: no
[2023-12-25] MEDS: Lactobacillus Acidophilus CAP 1 CAP PO (17:03)
[2023-12-25] MEDS: ceFAZolin 1 GM/50 ML BAG IVPB (19:20)
[2023-12-25] MEDS: Simvastatin 20 MG TAB PO (20:46)
[2023-12-25] MEDS: Propranolol 20 MG TAB PO (20:46)
[2023-12-25] MEDS: Amitriptyline 25 MG TAB PO (20:46)
[2023-12-26] MEDS: ceFAZolin 1 GM/50 ML BAG IVPB ×2 (02:18→09:54)
[2023-12-26 07:32] VITALS: BP 127/54; PULSE 77; RESP 17; TEMP 37.1; O2SAT 98
[2023-12-26] MEDS: Enoxaparin 30 MG/0.3 ML SYR SC (08:33)
[2023-12-26] MEDS: Lactobacillus Acidophilus CAP 1 CAP PO (08:34)
[2023-12-26] MEDS: Aspirin E.C. 81 MG TABEC PO (08:34)
[2023-12-26] MEDS: Normal Saline Flush 10 ML SYR IVP (08:34)
[2023-12-26] MEDS: Propranolol 20 MG TAB PO (08:34)
[2023-12-26] MEDS: metFORMIN 500 MG TAB PO (08:34)
--- NOTE | 2023-12-26 09:37 | PT.INTREAT ---
PT Notes Visit Reasons: Right ankle fx/dx Inpatient Physical Therapy Treatment Note [facility] Date: 12/26/23 PRECAUTIONS:Less thank 50% weight bearing on involved LE SUBJECTIVE: Pt reports that she is ready to go home today. OBJECTIVE: Therapeutic Activities (00641w[1]): Direct one-on-one instruction in dynamic activities to improve functional performance. ? BED MOBILITY/TRANSFERS? Rolling L/R: Supine-sit: SBAx1? Sit-supine: SBAx1 ? Sit-stand: SBAx1? Stand-sit: CGA ? Provided skilled cues and instruction on performance and technique throughout. Gait Training (38670l[1]): Direct one-on-one instruction and skilled instruction in: [X] modified weight-bearing status [X] Provided verbal cues for equipment management and technique ? GAIT? Assistive Device: FWW ? Weight bearing: Less than 50% Assist: CGA/SBA? Distance:? Approx 100ft ? STAIRS:Up one clinic 6 inch step using B rails with 50% wt bearing involved LE and down one step? ASSESSMENT:? Pt is very determined to go home. I did state to her and care management that if she has people with her at home she is safe but if she is going to be alone I did not think it would be best for right now. Pt will have family with her when she goes home. The step to get into the house that has no rails is my only concern at this point as well as having to remind pt of her wt bearing status. PLAN: Cont as per PT POC. TREATMENT CODE/TIME: 05-30:35 (35) TA Gait
--- NOTE | 2023-12-26 10:35 | DSE_ITS ---
Date of service: 12/26/23 Time of Service: 10:35 DS: Diagnosis Discharge Diagnosis (1) Fracture dislocation of right ankle: Status: Acute Discharge Plan Disposition Patient Disposition: Home W/Home Health Services Condition: Stable Condition: Stable Discharge Details Reason For Visit: Right ankle fx/dx Admit Date/Time: 12/24/23 16:21 Admit Provider: Dat Ivy Attending Provider: Dat Ivy Primary Care Provider: Miguel Lara Hospital Course Hospital Course: Right ankle dislocation reduced in emergency room 12/24/2023 and subsequent surgery 12/25/23. Transferred to the hospitalist service for rehabilitation through the weekend. safely reambulated with PT and family will be staying with her until she is independent and safe. discharged to home with PT, will continue discharge instruction per orthopedics. discharged to home with family support. discussed with DR Eller Home Meds and New Rx's Prescriptions: New aspirin 81 mg tablet,delayed release (DR/EC) 81 mg PO DAILY 14 Days Qty: 14 0RF naproxen 250 mg tablet 250 mg PO BID PRNQty: 30 0RF Rx Instructions: take with a meal tramadol 50 mg tablet 50 mg PO Q8H PRN (Reason: severe pain) Qty: 9 0RF Continued aspirin [Adult Low Dose Aspirin] 81 mg tablet,delayed release (DR/EC) 81 mg PO DAILY ICaps [id number] cpps-di-kk-unit tablet extended release 1 tab PO DAILY cyanocobalamin (vitamin B-12) 1,000 mcg capsule 1,000 mcg PO DAILY folic acid 800 mcg tablet 0.8 mg PO DAILY amitriptyline 25 mg tablet 25 mg PO HS Qty: 90 3RF amlodipine 5 mg tablet 5 mg PO DAILY Qty: 90 1RF lisinopril 20 mg tablet 20 mg PO DAILY Qty: 90 4RF lisinopril-hydrochlorothiazide 20-12.5 mg tablet 1 tab PO DAILY Qty: 90 4RF metformin 500 mg tablet 500 mg PO BID Qty: 180 1RF propranolol 20 mg tablet 20 mg PO BID Qty: 180 3RF simvastatin 20 mg tablet 20 mg PO HS Qty: 90 4RF chlordiazepoxide HCl 5 mg capsule 5 mg PO HS Qty: 90 1RF Discharge Instructions Instructions: ORIF of an Ankle Fracture (DC) Additional Instructions: Surgery 12/25/23 Right trimalleolar ankle ORIF Activity: Partial weightbearing (less than 50%) with a walker. Strict elevation to minimize swelling. Encourage circulation, wiggle toes. Prescriptions: TBD Aspirin 81 mg take 1 daily to prevent a blood clot for 2 weeks Naproxen 250 mg take 1 every 12 hours with a meal as needed for moderate pain Tramadol 50 mg take 1 every 8 hours as needed for severe pain You may use [id number] Tylenol (acetaminophen) as needed for mild pain. These pain medications may be taken all at once or in different combinations as needed. Also, recommend Colace (docusate) as a stool softener as surgery and pain medicine cause constipation. You may try [id number] diphenhydramine (Benadryl) 25-50 mg nightly as a s leep aid Dressings: Leave splint and dressing in place until follow-up. Keep clean and dry at all times. Follow-up: 10-[address] Ivy Please call the office during business hours with any questions or concerns. Stand Alone Forms: Nursing Discharge Form Referrals: Dat Ivy MD [ [facility] STAFF PHYSICIAN] - (Please call on Thursday to set up an apt within 10-14 days) Miguel Lara MD [Primary Care Provider] - (Please call on Thursday to set up a hospital follow up. ) Activity:: see instructions Equipment/Supplies:: No Equipment Needed Diet:: As Tolerated Discharge Orders Discharge Orders: Discharge Order (Routine); Ordered 12/26/23 Ordered By: Zoey Calero DS: Summary Time Spent with Patient providing and/or coordinating discharge services: Less than 30 minutes Status at Discharge Functional status at discharge: uses cane/walker Overall status at discharge: patient is progressing back to baseline Mental Status: mental status grossly normal Speech and Movement: speech and movement normal Mood: congruent mood Affect: normal affect Quality:SDOH Health Related Social Needs: No Data to Display Exam Narrative Exam Narrative: Elderly female younger than stated age in no acute distress head is atraumatic eyes normal appearance nonicteric noninjected neck is supple with full range of motion no JVD respirations are even and unlabored cardiovascular regular rate and rhythm abdomen is soft benign her extremities she has a splint intact to her right lower extremity her toes with positive sensation minimal swelling positive movement there is no erythema or swelling proximally. Neurologic she is awake alert oriented no focal deficits psychiatric appropriate mood and affect Psych Mental Status: mental status grossly normal Speech and Movement: speech and movement normal Mood: congruent mood Affect: normal affect DS: Data Vitals/I&O Vitals and I&O: Vital Signs Temperature 37.1 C 12/26/23 07:32 Temperature Source Tympanic 12/26/23 07:32 Pulse 77 12/26/23 07:32 Pulse Rhythm Regular 12/26/23 08:40 Pulse 91 H 12/24/23 15:47 Respiratory Rate 17 12/26/23 07:32 Respiratory Effort Normal, Non-Labored 12/26/23 08:40 Respiratory Depth Normal 12/26/23 08:40 Respiratory Pattern Normal 12/26/23 08:40 Blood Pressure 127/54 L 12/26/23 07:32 Blood Pressure Mean 73 12/25/23 08:48 Blood Pressure Position Left Lateral 12/25/23 08:48 Pulse Oximetry 98 12/26/23 07:32 Respiratory End-tidal CO2 33 12/25/23 13:35 Oxygen Delivery Method Room Air 12/26/23 07:32 Oxygen Flow Rate 0 12/26/23 07:32 Pain Level 0 12/26/23 08:40 Comment pt tolerated procedure well 12/25/23 08:48 Intake & Output 12/25/23 12/25/23 12/26/23 11:59 23:59 11:59 Intake Total 157.5 / 1340.0 1182.5 / 1340.0 290 / 290 Output Total 400 / 1335 935 / 1335 200 / 200 Balance -242.5 / 5.0 247.5 / 5.0 90 / 90 Weight 52.4 kg Intake: IV 157.5 / 1050.0 892.5 / 1050.0 50 / 50 Oral 290 / 290 240 / 240 Output: Urine 400 / 1325 925 / 1325 200 / 200 Estimated Blood Loss Other: Urine Color Yellow Pale Yellow Urine Appearance Cloudy Clear Clear Urine Odor None Normal Emesis Description None Voiding Methods Bedside [facility] All Active Problems Fracture dislocation of right ankle (Acute 12/24/23) Closed right ankle fracture (Acute) Low vitamin B12 level (Acute) Peripheral neuropathy (Acute) Smoker (Acute) Neurodermatitis (Acute) eczema Hyperlipidemia (Acute) Essential hypertension (Acute 08/25/13) Diabetes mellitus (Chronic 03/16/12) Arthritis (Acute) Anxiety (Acute) H/O 30 yr. benzodiazepine use Medical History Pessary maintenance (08/05/17) Long-standing use of 64 mm longstem Gelhorn. Change to 64 mm donut pessary 06/21/18. Not well tolerated. Pt will stop all pessary use and be eval for surgical Rx at [facility] [place]. Cystocele with uterine prolapse (06/30/11) Treated with LeFort colpocleisis, posterior repair at [facility] [place] 2019 Tobacco use In the pre-contemplative stage of cessation. Pelvic organ prolapse quantification stage 4 cystocele Long-standing Gellhorn use, 06/2018 changed with donut pessary use of insertion and removal. For 2019 [facility] [place] urogynecology consult: Patient recommended to have a colpocleisis. Surgical History History of bilateral salpingo-oophorectomy 07/20/19 History of total vaginal hysterectomy (TVH) Patient also had a Vaginectomy 07/20/19 Tonsillectomy and adenoidectomy Endometrial Biopsy neg Biopsy of breast (~2000) Family History Father Personal history of malignant neoplasm COLON FAMILY HISTORY Heart disease Social History Smoking/Tobacco Use Status: Current every day Tobacco Type: cigarettes Smoking packs per day: 1 Smoking cigarettes per day: 20.0 Smoking risk assessment performed?: Yes Alcohol Intake: never Substance use type: does not use Household members: none Housing: other Sexually active: No Tete/Scientologist: presybeterian Seatbelt use: always Do you feel safe at home: Yes Do you feel safe in your relationship?: Yes Additional Social history: lives alone-will have somebody to care for her post- op Female Reproductive History Menstrual Menopause type: natural History History 4 Para Hx # Term Pregnancies 3 Multiple births Hx # Pregnancies Ectopic pregnancies AB induced Hx Number of Living Children AB spontaneous Time Spent with Patient Time Spent with Patient: <45 minutes Time was spent: preparing to see the patient(eg.review tests), obtaining and/or reviewing separately otained hiistory, referring, communicating with other health care manager cna, indepentently interpreting results, counseling the patient and care coordination
--- NOTE | 2023-12-26 10:39 | PDOC.HHF2F ---
Home Health Referral Home Health Orders Clinical synopsis of why skilled professionals are needed: fracture/dislocation ankle with surgical repair, neuro vascular checks, rehab needs Medical diagnosis necessitation home health referral: s/p repair of fractured dislocated right ankle Physical Therapist: Check all that apply Increase strength & endurance for safe mobility at home: Ordered To design/establish home maintenance program: Ordered Fall reduction therapy program for patient with history of frequent falls: Ordered Home safety evaluation and teaching/gait training including stair management (if applicable): Ordered Occupational Therapist: Evaluate and treat for patient unable to perform ADL/IADL/self-care: Ordered Upper extremity strengthening, range and motion: Ordered Home Bound Status Requires the aid of supportive device (check all that apply): Walker (partial weight bearing) Describe why leaving home would require a considerable and taxing effort: Side effects from pain medication (sedation/drowsiness), Requires frequent rest periods and Safety Concerns: describe Encounter Date and Reason: I certify that a FTF encounter for this patient was performed on December 26, 2023 and that such encounter was related to the primary reason the patient requires home health services. The encounter was conducted in the following manner: By me as the certifying physician, RECREATION ACTIVITIES COORDINATOR, PA or By an inpatient physician, RECREATION ACTIVITIES COORDINATOR or PA during an inpatient stay who communicated findings to me, Certification And Authentication I certify that I composed the above information based on my clinical judgment relating to this patient's medical condition and, if applicable, clinical findings communicated to me by the NPP or inpatient physician who performed the FTF encounter. Name of Provider that will be monitoring home health services: Migeul Lara
== END 2023-12-26 14:54 | disposition home health service (06) ==
LOC: ER 16:29 → ICU 16:52 → MS 12-25 18:21
PROVIDERS: Admitting Provider Student in an Organized Health Care Education/Training Program; Emergency Provider Student in an Organized Health Care Education/Training Program; PCP Family Medicine; Visit Provider Student in an Organized Health Care Education/Training Program
DX: S82.851A Displaced trimalleolar fracture of right lower leg, initial encounter for closed fracture (principal); I10 Essential (primary) hypertension; F17.210 Nicotine dependence, cigarettes, uncomplicated; E53.8 Deficiency of other specified B group vitamins; E11.42 Type 2 diabetes mellitus with diabetic polyneuropathy; E78.5 Hyperlipidemia, unspecified; F41.9 Anxiety disorder, unspecified; W00.0XXA Fall on same level due to ice and snow, initial encounter; Z79.84 Long term (current) use of oral hypoglycemic drugs; Z79.899 Other long term (current) drug therapy
CPT/HCPCS: C1776; 00123; 27823; 27840; 36415; 76942; 80048; 80053; 96374; 97116; 97162; 97530; 99223; 99285; 71045; 73600; 73610; 83036; 85025; 93005; 93010; G0378; J0171; J0665; J0690; J1100; J1650; J2001; J2250; J2270; J2371; J2405; J2704; J3010

== ENCOUNTER 2024-01-06 14:56 | Outpatient (CLI) | payer MEDICARE, SELFPAY ==
--- NOTE | 2024-01-06 10:30 | DI.RAD_ITS ---
Exam(s) XR ANKLE RT COMPLETE EXAM: XR ANKLE RT COMPLETE CLINICAL HISTORY: F/U FRACTURE. TECHNIQUE: 2D digital imaging was performed. Three views. COMPARISON: CR XR ANKLE RT COMPLETE from 12/24/2023 CR XR ANKLE RT COMPLETE from 12/24/2023 XA XR ANKLE RT 2V from 12/25/2023 FINDINGS: BONES: There has been no change in hardware alignment. No abnormal surrounding lucencies. The frac tures remain nondisplaced. Old fractures are again noted in the distal tibia and fibula. Rounded olga cency again noted in the medial talar dome. Small heel spurs. JOINTS: The ankle mortise is normally aligned. SOFT TISSUE: Normal. IMPRESSION: Stable fracture and hardware alignment. DATA REPOSITORY: RADIATION DOSE DELIVERED:
== END 2024-01-06 14:57 | disposition home or self-care (01) ==
LOC: DIORS 14:56
PROVIDERS: PCP Family Medicine; Referring Provider Family Medicine; Visit Provider Student in an Organized Health Care Education/Training Program
DX: S82.891D Other fracture of right lower leg, subsequent encounter for closed fracture with routine healing; X58.XXXD Exposure to other specified factors, subsequent encounter
CPT/HCPCS: 29405; 73610

== ENCOUNTER 2024-01-27 10:44 | Outpatient (CLI) | payer MEDICARE, SELFPAY ==
[2024-01-27 12:57] LABS: Vitamin B12 > 2000 pg/mL (193-986)
== END 2024-01-27 10:45 | disposition home or self-care (01) ==
LOC: LOS 10:45
PROVIDERS: PCP Family Medicine; Referring Provider Family Medicine; Visit Provider Family Medicine
DX: D64.9 Anemia, unspecified (principal)
CPT/HCPCS: 36415; 82607

== ENCOUNTER 2024-02-03 15:43 | Outpatient (CLI) | payer MEDICARE, SELFPAY ==
--- NOTE | 2024-02-03 09:15 | DI.RAD_ITS ---
Exam(s) XR ANKLE RT COMPLETE EXAM: XR ANKLE RT COMPLETE CLINICAL HISTORY: F/U FRACTURE. TECHNIQUE: 2D digital imaging was performed. Three images were obtained. AP, lateral and oblique vi ews were obtained. COMPARISON: CR XR ANKLE RT COMPLETE from 12/24/2023 XA XR ANKLE RT 2V from 12/25/2023 CR XR ANKLE RT COMPLETE from 01/06/2024 FINDINGS: BONES: There are stable post operative changes present. The fracture lines are still visualized. No new fracture or dislocation. There are enthesophyte at the posterior calcaneus. There is a small pl will calcaneal spur. There is a stable cyst seen in the medial aspect of the talar dome. There are old healed distal right tibial and fibular fractures. JOINTS: The joint spaces are well maintained. SOFT TISSUE: Normal. IMPRESSION: Stable postoperative changes. DATA REPOSITORY: RADIATION DOSE DELIVERED:
== END 2024-02-03 15:44 | disposition home or self-care (01) ==
LOC: DIORS 15:43
PROVIDERS: PCP Family Medicine; Referring Provider Family Medicine; Visit Provider Student in an Organized Health Care Education/Training Program
DX: S82.891D Other fracture of right lower leg, subsequent encounter for closed fracture with routine healing (principal); X58.XXXD Exposure to other specified factors, subsequent encounter
CPT/HCPCS: 73610

== ENCOUNTER 2024-03-16 11:11 | Outpatient (CLI) | payer MEDICARE, SELFPAY ==
--- NOTE | 2024-03-16 10:45 | DI.RAD_ITS ---
Exam(s) XR ANKLE RT COMPLETE EXAM: XR ANKLE RT COMPLETE CLINICAL HISTORY: F/U ANKLE ORIF. TECHNIQUE: 2D digital imaging was performed. Three views. COMPARISON: CR XR ANKLE RT COMPLETE from 12/24/2023 CR XR ANKLE RT COMPLETE from 12/24/2023 CR XR ANKLE RT COMPLETE from 02/03/2024 FINDINGS: BONES: Stable fracture and hardware alignment. Old fracture deformities of the distal tibia and fibu la noted. Heel spurs. Cystic lesion again noted in the talar dome. JOINTS: The ankle mortise is normally aligned. SOFT TISSUE: Mild swelling. IMPRESSION: Stable fracture and hardware alignment. DATA REPOSITORY: RADIATION DOSE DELIVERED:
== END 2024-03-16 11:12 | disposition home or self-care (01) ==
LOC: DIORS 11:11
PROVIDERS: PCP Family Medicine; Referring Provider Family Medicine; Visit Provider Student in an Organized Health Care Education/Training Program
DX: S82.891D Other fracture of right lower leg, subsequent encounter for closed fracture with routine healing (principal); X58.XXXD Exposure to other specified factors, subsequent encounter
CPT/HCPCS: 73610